=== PATIENT | female | born 1935 | race Caucasian/White ===

== ENCOUNTER → 2017-10-14 | Outpatient (CLI) | payer OTHER | LOC: FIMAGING 09:19 | PROVIDERS: ATTEND Internal Medicine | DX: I63.9 Cerebral infarction, unspecified (principal) ==

== ENCOUNTER 2017-10-27 15:10 | Inpatient (IN) | payer OTHER ==
[2017-10-27] MEDS ORDERED: traMADol 50 MG TAB PO PRN (16:06)
--- NOTE | 2017-10-27 16:33 | PDOREHIP ---
Admission [facility] - Admission - 3 Day Assessment Period Admission Date/Day 1: 10/27/17 Day 2: 10/28/17 Day 3: 10/29/17 - Active Diagnoses Comorbidities and Co-existing Conditions at Admission: 29583. None of the Above - Skin Conditions Unhealed Pressure Ulcer (1 or more/Stage 1 or >)-Admission: 0. No
--- NOTE | 2017-10-27 17:12 | GHP ---
[f rep st] HISTORY AND PHYSICAL POST ADMISSION PHYSICIAN EVALUATION AND REHABILITATION TREATMENT PLAN DATE OF ADMISSION: 10/27/2017 DATE OF EVALUATION: 10/27/2017 TIME OF EVALUATION: 1550 REFERRING FACILITY: [facility]. REFERRING PHYSICIAN: Dr. Del Valle IMPAIRMENT GROUP: 1.2. DATE OF ONSET: 10/14/2017 REHABILITATION DIAGNOSIS: Cerebrovascular accident with ataxia. ETIOLOGIC DIAGNOSIS: Right body involvement (left brain). HISTORY OF PRESENT ILLNESS: This patient is an 82-year-old woman who presented to her primary care provider with acute mental status changes on 10/13/2017. An MRI of the brain was ordered which showed an acute to subacute infarct in the left dentate nucleus, the anterior external capsule, and the albert ventricular region of the left frontal lobe with hemorrhage and no mass effect. Also seen were periventricular white matter changes and cerebral atrophy. She was seen on 10/16/2017 by Neurology who noted aphasia, gait ataxia, and decline in cognition and function. She returned to independent living at [facility] with home care services and family support. Home physical therapy noted that she was a fall risk and was not safe living independently and recommended admission to acute inpatient rehabilitation. Recent studies and labs: prior to onset of her symptoms she was seen in primary care and had a CBC on 10/09/2017 which was overall within normal limits. She had a relative increase in neutrophils at 78.8% and decrease in lymphocytes at 10.6%, but this was of no clinical significance. Serum chemistry on the same date showed a slightly elevated creatinine of 1.1 and an estimated GFR of 47. Blood sugar was elevated at 141, but this was likely not fasting. Her total protein was slightly low at 5.9 with a normal albumin. Otherwise, renal function, electrolytes, and liver functions were within normal limits. Vitamin B12 was normal at 643 and TSH was normal at 0.679. Urinalysis on 10/10/2017 showed positive nitrates and leukocyte esterase. She had 50-182 white blood cells and no epithelial cells. Urine was cultured and grew Escherichia coli which was pansensitive. MRI of the brain was as discussed above. PRECAUTIONS: She is a fall risk. She has aspiration precautions. ACTIVE COMORBIDITIES: She has no active tier 1, tier 2 or tier 3 comorbidities. PAST MEDICAL HISTORY: 1. Hypothyroidism. 2. Sciatica. 3. Cataracts. 4. Depression. 5. Hypertension. 6. Dyslipidemia. 7. Cognitive impairment. PAST SURGICAL HISTORY: She has had an appendectomy and a hysterectomy. She had recent cataract surgery. MEDICATIONS PRIOR TO ADMISSION: 1. Ibuprofen 200 mg q.6 hours p.r.n. 2. Aspirin 81 mg p.o. daily. 3. Cephalexin treatment for urinary tract infection has been completed. 4. Duloxetine 60 mg p.o. daily at bedtime. 5. Duloxetine 40 mg daily. 6. Levothyroxine 50 mcg p.o. daily. 7. Lisinopril 2.5 mg p.o. daily. 8. Stool softener twice a week. 9. Tramadol 1-2 mg p.o. q.6 hours p.r.n. 10. Solifenacin 5 mg p.o. daily. ADMISSION MEDICATIONS: 1. Aspirin 81 mg p.o. daily. 2. Atorvastatin 10 mg p.o. at bedtime. 3. Duloxetine 40 mg p.o. daily. 4. Levothyroxine 50 mcg p.o. daily. 5. Lisinopril 2.5 mg p.o. daily. 6. Solifenacin 5 mg p.o. daily. 7. Tramadol 50-100 mg p.o. q.6 hours p.r.n. ALLERGIES: There are no known drug allergies. FAMILY HISTORY: She has a daughter with vascular dementia and there is a family history of hypertension. PSYCHOSOCIAL HISTORY: She is a . She has had a career as a surgical nurse. She has 2 daughters. She had been living with 1 daughter in [place], [place], but approximately a year ago the 2 of them moved as the [place] daughter was developing dementia, so they moved to [place] to be cared for by the other daughter. She is a nonsmoker and does not use alcohol. She lives at [facility]. There are no stairs to climb. REVIEW OF SYSTEMS: She reports that she has had some recent weight loss, but her daughter reports that a year ago she weighed 84 pounds and currently weighs 93 pounds. She reports a reduced appetite. She denies pain at present. Daughter reports that since the stroke her sciatic pain has remitted. She denies vision changes, difficulty swallowing, weakness, numbness or tingling of the extremities. She denies headache. She denies chest pain or palpitations. She denies fevers or chills. She denies nausea, vomiting, constipation, diarrhea. She denies dysuria or urinary frequency. Otherwise, a 10-point review of systems is negative. PHYSICAL EXAM: VITAL SIGNS: Blood pressure is 128/76, heart rate is 81, respiratory rate is 14, oxygen saturation is 93% on room air. Temperature is 36.4 degrees centigrade. Her weight is 42.5 kg for a body mass index of 16.6. GENERAL: This is a thin elderly woman, appears her chronologic age, cooperative , and in no acute distress. HEENT: Extraocular movements are intact. Pupils are small, but reactive to light. Mucous membranes are moist. Dentition is in good condition with dentures. She has a crowded airway, Mallampati class 3. There are no oropharyngeal mucosal lesions noted. NECK: Supple. There are no carotid bruits. There is no thyromegaly. HEART: There is a regular rate and rhythm with no murmurs, rubs, or gallops. LUNGS: Clear to auscultation bilaterally. ABDOMEN: Soft, nontender, nondistended with normoactive bowel sounds and no hepatosplenomegaly. EXTREMITIES: There is no clubbing or edema. Feet are cyanotic and cool, but capillary refill is brisk. Radial pulses are 2+ bilaterally and dorsalis pedis pulses are 2+ bilaterally. NEUROLOGIC: She is alert and oriented to the month and year and general situation. She is not oriented to name of her current location or the date of the month. Cranial nerves 2-12 are grossly intact. She has 4/5 strength in the right biceps and triceps and the right quadriceps and hip flexors. Otherwise, strength is 5/5 overall. Sensation is intact to light touch. Deep tendon reflexes are globally hypoactive. Current level of function per the pre-admission screen: regarding diet, feeding , and swallowing, she was on a regular diet but required assistance for setup. Regarding grooming, she required minimal assistance with voice cues. Regarding bathing, she required moderate assistance with voice cues. Dressing was accomplished with apraxia noted and requiring maximal assistance with voice cues. Toileting was done with minimal assistance. Regarding bladder she was noted to have urinary incontinence requiring pads and maximal assistance to place pads. Regarding bowels she was continent. Bed mobility required maximal assistance and transfers minimal assistance, but she appears to have improved mobility at present. She was using a front-wheeled walker. Regarding balance, she had loss of balance to the right side and required maximal assistance to prevent a fall. Endurance was fair. Regarding gait she was noted to have decreased step length on the right with shuffling and at times dragging the right lower extremity. She had decreased guillermo, requiring moderate assistance with a front-wheeled walker and constant voice cues to negotiate the environment. Regarding communication, she was noted to have expressive aphasia. Regarding cognition, she was noted to have moderate impairment involving executive function skills and initiation. She was considered to be a high fall risk. IMPRESSION: This is an 82-year-old woman who came to the attention of primary care and subsequently Neurology with an acute to subacute hemorrhagic stroke of the left-sided deep white matter and frontal lobe. She was initially sent home with orders for home therapies. However, home therapy found her to be unsafe to be living in an independent situation and so arrangements were made for her to transfer to inpatient rehabilitation to continue rehabilitation in a safer setting. She had been prescribed atorvastatin by Neurology, but apparently this has not been initiated. She has associated medical conditions of hypertension, dyslipidemia, urinary incontinence, possible overactive bladder, depression, hypothyroidism, and sciatic pain. Her goal is to return to independent living with home health services as needed. For a safe discharge it is expected that she will achieve modified independence for bed mobility, grooming, dressing, transfers, and ambulation with the least restrictive device. It is likely she will continue to need assistance for bathing, household management, and meal preparation. She will have therapies with physical therapy, occupational therapy, and speech and language pathology for 60 minutes per day for each discipline on 5-7 days of the week. Her expected duration of stay is 14-21 days. It is anticipated that upon discharge she will continue to benefit from home health services including nursing, speech language pathology, a home health aide , social work, OT and PT. Additionally, she will benefit from a stroke support group. PLAN: 1. 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 PT and OT to optimize mobility and ADLs towards discharge to independent living with support services as needed. 2. Cognitive and communication deficits possibly pre-existing and exacerbated by stroke. Assessment and treatment per Speech and Language Pathology. 3. Secondary stroke prophylaxis. Continue aspirin, atorvastatin, and blood pressure control with lisinopril. Monitor blood pressure and adjust lisinopril as needed. 4. Urinary incontinence. Continue solifenacin. We will check bladder scan to rule out overflow incontinence and will initiate timed voiding and the rehabilitation bladder program. 5. Chronic renal insuficiency, stage 3. Monitor renal function with adjustment of blood pressure medications. 6. Recent urinary tract infection status post treatment with cefuroxime. She will be observed for any continued symptoms or recurrent symptoms. 7. Chronic pain with history of sciatica, which appears to have remitted subsequent to her stroke. Continue tramadol on a p.r.n. basis. I have also scheduled acetaminophen on a p.r.n. basis. 8. History of depression. Continue duloxetine. 9. Code status was discussed with the patient and her daughter and she prefers do not resuscitate. 10. Prophylaxis. She is not hemiparetic or bed bound. Pharmacologic DVT prophylaxis will not be initiated at present. Observe for adequate mobility. /[id number]/MODL MTDD
[2017-10-27] MEDS: DULoxetine 20 MG CAP PO SCH (20:05)
[2017-10-27] MEDS: SOLIFENACIN SUCCINATE 5 MG TAB PO SCH (20:05)
[2017-10-27] MEDS: ATORVASTATIN CALCIUM 10 MG TAB PO SCH (20:05)
[2017-10-28] MEDS: LEVOTHYROXINE 50 MCG TAB PO SCH (06:18)
[2017-10-28] MEDS: ASPIRIN EC 81 MG TAB PO SCH (08:23)
[2017-10-28] MEDS: POLYETHYLENE GLYCOL 3350 17 GM PKT PO PRN (08:23)
[2017-10-28] MEDS ORDERED: DULoxetine 20 MG CAP PO SCH (09:00)
[2017-10-28] MEDS ORDERED: LISINOPRIL 2.5 MG TAB PO SCH (09:00)
[2017-10-28] MEDS ORDERED: SOLIFENACIN SUCCINATE 5 MG TAB PO SCH (09:00)
[2017-10-28] MEDS ORDERED: LISINOPRIL 2.5 MG TAB PO ONE (09:00)
--- NOTE | 2017-10-28 09:37 | SOAPPROG ---
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 Hemorrhagic stroke to the left dentate nucleus, anterior external capsule, and periventricular left frontal lobe. subvacute on imaging 10/14/2017. * Ambulated 50' 4ww CGA. * Continue PT and OT to optimize mobility and ADLs towards discharge to independent living with support services as needed. * Cognitive and communication deficits possibly pre-existing and exacerbated by stroke. * Assessment and treatment per Speech and Language Pathology. * Chair and bed alarms for safety. * Secondary stroke prophylaxis. Continue aspirin, atorvastatin, and blood pressure control. * Hypertension. * BP elevated this morning 11/07/2017. * Increase lisinopril from 2.5 mg QD to 5 mg QD. Continue to monitor and adjust as needed. * Urinary incontinence. Continue solifenacin. * We will check bladder scan to rule out overflow incontinence and will initiate timed voiding and the rehabilitation bladder program. * Chronic renal insufficiency, stage 3. Monitor renal function with adjustment of blood pressure medications. * Recent urinary tract infection status post treatment with cefuroxime. She will be observed for any continued symptoms or recurrent symptoms. Chronic pain with history of sciatica, which appears to have remitted subsequent to her stroke. * Continue tramadol and acetaminophen on a p.r.n. basis. * History of depression. Continue duloxetine. * Code status was discussed with the patient and her daughter and she prefers do not resuscitate. * Prophylaxis. She is not hemiparetic or bed bound. Pharmacologic DVT prophylaxis will not be initiated at present. Observe for adequate mobility. 10/28/17 12:11 Subjective: No complaints. Slept well. Not in pain. No fevers, chills, cough, dyspnea. Objective: Vital Signs Temp Pulse Resp BP Pulse Ox 36.7 C 76 16 177/99 H 97 10/28/17 06:37 10/28/17 06:37 10/28/17 06:37 10/28/17 08:58 10/28/17 06:37 10/27/17 10/28/17 10/29/17 05:59 05:59 05:59 Intake Total 640 360 Balance 640 360 Physical Exam - Physical Exam General Appearance: WD/WN, alert, no apparent distress, thin Respiratory: normal breath sounds, No crackles, No rhonchi, No wheezing Skin: normal color, warm/dry Neuro/Psych: alert, normal mood/affect ICD10 Worksheet Patient Problems: Problems Problem Status Onset HTN (hypertension) Acute Hemorrhagic stroke Acute - ICD10 Problem Qualifiers (1) Hemorrhagic stroke (2) HTN (hypertension)
[2017-10-28] MEDS: ATORVASTATIN CALCIUM 10 MG TAB PO SCH (19:48)
[2017-10-28] MEDS: SOLIFENACIN SUCCINATE 5 MG TAB PO SCH (19:48)
[2017-10-28] MEDS: DULoxetine 20 MG CAP PO SCH (19:48)
[2017-10-29] MEDS: LEVOTHYROXINE 50 MCG TAB PO SCH (07:16)
[2017-10-29] MEDS: ASPIRIN EC 81 MG TAB PO SCH (09:51)
[2017-10-29] MEDS: LISINOPRIL 5 MG TAB PO SCH (09:51)
--- NOTE | 2017-10-29 10:40 | SOAPPROG ---
SOAP Progress Note Assessment/Plan: 82-year-old woman status post left hemorrhagic subacute stroke Today's update: Still mildly hypertensive, implemented increase of lisinopril to 5 mg p.o. q.day with a 1 time dose of 2.5 mg today. Patient asymptomatic. Progressing well in therapies. 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 Hemorrhagic stroke to the left dentate nucleus, anterior external capsule, and periventricular left frontal lobe. subacute on imaging 10/14/2017. * Ambulated 50' 4ww CGA. * Continue PT and OT to optimize mobility and ADLs towards discharge to independent living with support services as needed. * Cognitive and communication deficits possibly pre-existing and exacerbated by stroke. * Assessment and treatment per Speech and Language Pathology. * Chair and bed alarms for safety. * Secondary stroke prophylaxis. Continue aspirin, atorvastatin, and blood pressure control. * Hypertension. Mildly elevated, asymptomatic * Increased lisinopril from 2.5 mg QD to 5 mg QD. Continue to monitor and adjust as needed. * Made order changed today 10/29/2017, gave 1 time dose of lisinopril 2.5 mg * Urinary incontinence. Continue solifenacin. * We will check bladder scan to rule out overflow incontinence and will initiate timed voiding and the rehabilitation bladder program. * Chronic renal insufficiency, stage 3. Monitor renal function with adjustment of blood pressure medications. * Recent urinary tract infection status post treatment with cefuroxime. She will be observed for any continued symptoms or recurrent symptoms. Chronic pain with history of sciatica, which appears to have remitted subsequent to her stroke. * Continue tramadol and acetaminophen on a p.r.n. basis. * History of depression. Continue duloxetine. * Code status was discussed with the patient and her daughter and she prefers do not resuscitate. * Prophylaxis. She is not hemiparetic or bed bound. Pharmacologic DVT prophylaxis will not be initiated at present. Observe for adequate mobility. 10/29/17 10:37 Subjective: Chief complaint: Hypertension No acute events overnight. Patient denies any shortness of breath or chest pain , no new numbness, tingling, or weakness. She denies any lightheadedness, no headache. She feels that therapy is going well, no additional concerns today. She did not receive 5 mg of lisinopril this morning, rather 2.5 mg. Order was changed according to documentation and discussion with Dr. Jolley. Objective: Vital Signs Temp Pulse Resp BP Pulse Ox 36.7 C 75 16 159/85 H 97 10/29/17 07:29 10/29/17 07:29 10/29/17 07:29 10/29/17 09:51 10/29/17 07:29 10/28/17 10/29/17 10/30/17 05:59 05:59 05:59 Intake Total 640 660 236 Balance 640 660 236 Physical Exam - Physical Exam General Appearance: alert, no apparent distress, thin EENT: No scleral icterus (R), No scleral icterus (L) Respiratory: No respiratory distress, No accessory muscle use Cardiac/Chest: normal peripheral pulses, regular rate, rhythm Skin: normal color, warm/dry, No cyanosis, No diaphoresis Extremities: No pedal edema, No swelling Neuro/Psych: alert, normal mood/affect ICD10 Worksheet Patient Problems: Problems Problem Status Onset HTN (hypertension) Acute Hemorrhagic stroke Acute
[2017-10-29] MEDS: DULoxetine 20 MG CAP PO SCH (20:21)
[2017-10-29] MEDS: ATORVASTATIN CALCIUM 10 MG TAB PO SCH (20:22)
[2017-10-29] MEDS: SOLIFENACIN SUCCINATE 5 MG TAB PO SCH (20:22)
[2017-10-30] MEDS: LEVOTHYROXINE 50 MCG TAB PO SCH (06:15)
[2017-10-30] MEDS: hydrALAZINE 10 MG TAB PO PRN (07:50)
[2017-10-30] MEDS: ACETAMINOPHEN 325 MG TAB PO PRN (07:52)
[2017-10-30] MEDS: LISINOPRIL 5 MG TAB PO SCH (07:52)
[2017-10-30] MEDS: ASPIRIN EC 81 MG TAB PO SCH (07:53)
[2017-10-30] MEDS ORDERED: LISINOPRIL 2.5 MG TAB PO ONE (10:29)
--- NOTE | 2017-10-30 13:29 | SOAPPROG ---
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 Hemorrhagic stroke to the left dentate nucleus, anterior external capsule, and periventricular left frontal lobe. subacute on imaging 10/14/2017. * Initial FIM 50. Ambulated 50' 4ww SBA with occasional CGA. Unsafe with 4 wheeled walker as she does not understand use of the brakes. Upper body dressing with setup, lower body dressing with moderate assist. * Continue PT and OT to optimize mobility and ADLs. * Cognitive and communication deficits possibly pre-existing and exacerbated by stroke. * Disoriented with 0 L of G score 14/30. Moderate to severe expressive aphasia and moderate receptive aphasia. Word-finding and naming deficits and loses track of conversation. DIS executive with decreased safety awareness and insight. * Continue Speech and Language Pathology. * Chair and bed alarms for safety. * Secondary stroke prophylaxis. Continue aspirin, atorvastatin, and blood pressure control. * Hypertension. * BP elevated this morning 10/30/2017, with systolic to 207. Received a dose of hydralazine with improvement. * Increased lisinopril from 2.5 mg QD to 5 mg QD starting 10/29/2017. Add amlodipine 5 mg at HS. Continue to monitor and adjust as needed. * Urinary incontinence. Continue solifenacin. * B;adder scan 188 cc; unclear if pre- or post-void. * Continue timed voiding and the rehabilitation bladder program. * Chronic renal insufficiency, stage 3. Monitor renal function with adjustment of blood pressure medications. * Recent urinary tract infection status post treatment with cefuroxime. She will be observed for any continued symptoms or recurrent symptoms. Chronic pain with history of sciatica, which appears to have remitted subsequent to her stroke. * Continue tramadol and acetaminophen on a p.r.n. basis. * History of depression. Continue duloxetine. * Code status was discussed with the patient and her daughter and she prefers do not resuscitate. * Prophylaxis. She is not hemiparetic or bed bound. Pharmacologic DVT prophylaxis will not be initiated at present. Observe for adequate mobility. Attended staffing, 15 min. Discussed with case management, dietitian, nursing, PT, OT, [employer]. 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 Observe for continued improvement. Unclear whether discharge will be back to independent living verses assisted living level. Tentative discharge date of 11/06/2017. 10/30/17 13:21 Subjective: Reports some pain, not severe, left proximal hamstring area. Slept well. No cough or dyspnea. No fevers or chills. Objective: Vital Signs Temp Pulse Resp BP Pulse Ox 36.6 C 71 15 170/91 H 93 10/30/17 07:51 10/30/17 07:51 10/30/17 07:51 10/30/17 08:28 10/30/17 07:51 10/29/17 10/30/17 10/31/17 05:59 05:59 05:59 Intake Total 660 386 118 Balance 660 386 118 - Time Spent With Patient Time Spent With Patient: Greater than 35 min floor time today including more than 50% of time in coordination of care during staffing meeting, and counseling patient. Physical Exam - Physical Exam General Appearance: WD/WN, alert, no apparent distress, thin Respiratory: normal breath sounds, No crackles, No rhonchi, No wheezing Cardiac/Chest: regular rate, rhythm, No edema, No diastolic murmur, No systolic murmur Skin: normal color, warm/dry Neuro/Psych: alert, normal mood/affect, abnormal gait (Short steps, shuffling, brief periods of freezing, with front wheeled walker, standby assist per PT.) ICD10 Worksheet Patient Problems: Problems Problem Status Onset HTN (hypertension) Acute Hemorrhagic stroke Acute - ICD10 Problem Qualifiers (1) Hemorrhagic stroke (2) HTN (hypertension)
[2017-10-30] MEDS ORDERED: amLODIPine BESYLATE 5 MG TAB PO SCH (21:00)
[2017-10-30] MEDS: SOLIFENACIN SUCCINATE 5 MG TAB PO SCH (21:56)
[2017-10-30] MEDS: DULoxetine 20 MG CAP PO SCH (21:56)
[2017-10-30] MEDS: ATORVASTATIN CALCIUM 10 MG TAB PO SCH (21:56)
[2017-10-31] MEDS: LEVOTHYROXINE 50 MCG TAB PO SCH (06:16)
[2017-10-31] MEDS: ACETAMINOPHEN 325 MG TAB PO PRN (07:00)
[2017-10-31] MEDS: LISINOPRIL 5 MG TAB PO SCH (08:31)
[2017-10-31] MEDS: ASPIRIN EC 81 MG TAB PO SCH (08:36)
[2017-10-31] MEDS: hydrALAZINE 10 MG TAB PO PRN (08:38)
[2017-10-31] MEDS ORDERED: oxyCODONE IR 5 MG TAB PO PRN (10:18)
[2017-10-31] MEDS ORDERED: amLODIPine BESYLATE 5 MG TAB PO SCH (12:40)
[2017-10-31] MEDS: LIDOCAINE 5% 1 EA PATCH TD SCH (14:51)
--- NOTE | 2017-10-31 17:00 | HOSPPROG ---
Hospitalist Progress Note Assessment/Plan: Assessment: 82 yo F p/w subacute multifocal CVA, small areas of hemorrhagic conversion # Acute on chronic encephalopathy. Evidenced by global brain dysfunction characterized as a sudden decline in mental status 10/30/17 AM. - Called by RN w/ unresponsive patient, SBP 200->110, visibly tachypneic, mental status at baseline prior to admin of BP+pain Rx - Reviewed chart (prior neuro consult by Dr. Ireland 10/16/17, prior MRI w/ small areas of hemorrhagic conversion), patient was at high risk of intracranial hemorrhage, decision made to get stat HCT at [facility] ED w/ labs for further evaluation - D/w Dr. Flaherty at , he reassessed patient after HCT/labs, determined her mental status to be improved (eyes open, following commands) with SBP 130s, other VSS - Patient acutely unresponsive this AM to sternal rub, suspect 2/2 transient cerebrovascular hypoperfusion in setting of rapid decline in SBP, unclear if UTI present and contributing - Will avoid rapid lowering of BP, ideal range 140-180 - 50 minutes of critical care time spent w/ this patient and family, addressing the situation above which was high risk of worsening morbidity/mortality given her significant co-morbid conditions, rapid mental status changes # Cerebrovascular accident with worsening cognition, ataxia and right hemiparesis. Microvascular ischemia, Hemorrhagic stroke to the left dentate nucleus, anterior external capsule, and periventricular left frontal lobe. Subacute on MRI 10/14/2017. - Initial FIM 50. Ambulated 50' 4ww SBA with occasional CGA. Unsafe with 4 wheeled walker as she does not understand use of the brakes. Upper body dressing with setup, lower body dressing with moderate assist. - Continue PT and OT to optimize mobility and ADLs. - Continue aspirin, atorvastatin, and blood pressure control # Cognitive and communication deficits possibly pre-existing and exacerbated by stroke. New baseline is AAOx1, follows commands - Disoriented with 0 L of G score 14/30. Moderate to severe expressive aphasia and moderate receptive aphasia. Word-finding and naming deficits and loses track of conversation. DIS executive with decreased safety awareness and insight. - Continue Speech and Language Pathology. - Chair and bed alarms for safety. # Hypertension. Chronic, microvascular changes on head imaging likely secondary to uncontrolled BP as outpt - Combination of amlodipine + increased lisinopril + PRN hydralazine caused drop to 110s - D/w daughter (Whit), her impression is that patient has felt less well since starting lisinopril - Given CKD, will avoid further increased to ACEi and will lower back to 2.5 - Increase amlodipine to 10mg HS - Stop PRN hydralazine - Gauge effect # Acute Urinary retention. Urinary incontinence likely flow incontinence, 800cc in bladder scan in ED, but had lower volume (200cc) on prior days - Unclear if solifenacin contributing - Lester placed in ED 10/31, continue for several days then trial void # Chronic renal insufficiency, stage 3. Avoid further increases to ACEi, recommend she f/u w/ [facility] as outpatient # Possible UTI. Recently treated w/ cefuroxime, patient unable to articulate whether she is having any symptoms - Given this AM's acute mental status change, 4+ bacteria/nitrates in UA, and leukocytosis, will give one dose CTX now and gauge effect - Repeat CBC in AM # Chronic pain with history of sciatica, which appears to have remitted subsequent to her stroke. - D/w daughters, I recommended discontinuing tramadol given lowered seizure threshold with CVA - PRN tylenol, oxy IR, lidoderm patch # History of depression. Continue duloxetine. Diet. Regular as ashley PPx. High risk is not getting out of bed, SCDs, monitor Code. DNR Dispo. Acute events today, unclear how these will effect overall functional status Subjective: patient completely unresponsive this AM s/p lisinopril + hydralazine + tramadol + tylenol Objective: Vital Signs Temp Pulse Resp BP Pulse Ox 36.8 C 78 17 200/90 H 93 10/31/17 07:41 10/31/17 08:00 10/31/17 08:00 10/31/17 08:38 10/31/17 08:00 10/30/17 10/31/17 11/01/17 05:59 05:59 05:59 Intake Total 386 218 Output Total 100 75 Balance 386 118 -75 - Physical Exam Constitutional: not in pain, chronically ill appearing, No uncomfortable Eyes: anicteric sclera, EOMI Cardiovascular: regular rate and rhythym, no murmur, rub, or gallop, No edema Respiratory: no respiratory distress, no rales or rhonchi, clear to auscultation Gastrointestinal: normoactive bowel sounds, soft, non-tender abdomen, no palpable masses Neurologic: other (expressive aphasia, naming 0/3, concentration 0/7, motor bilat UE/LE 5/5) Psychiatric: not anxious, encephalopathic, flat affect, other (cooperates w/ some commands), No agitated ICD10 Worksheet Patient Problems: Problems Problem Status Onset HTN (hypertension) Acute Hemorrhagic stroke Acute UTI (urinary tract infection) Acute Urinary retention Acute
[2017-10-31] MEDS: DULoxetine 20 MG CAP PO SCH (20:02)
[2017-10-31] MEDS: ATORVASTATIN CALCIUM 10 MG TAB PO SCH (20:02)
[2017-11-01] MEDS: PATCH REMOVAL 1 EA PATCH TD SCH (02:16)
[2017-11-01] MEDS: LEVOTHYROXINE 50 MCG TAB PO SCH (06:38)
[2017-11-01 07:44] LABS: PLATELET COUNT 233 10^3/uL (150-400)
[2017-11-01] MEDS ORDERED: LISINOPRIL 2.5 MG TAB PO SCH (09:00)
[2017-11-01] MEDS ORDERED: LISINOPRIL 5 MG TAB PO SCH (09:00)
[2017-11-01] MEDS: ASPIRIN EC 81 MG TAB PO SCH (09:36)
[2017-11-01] MEDS: LIDOCAINE 5% 1 EA PATCH TD SCH (09:36)
[2017-11-01] MEDS ORDERED: POTASSIUM CL 20 MEQ TAB PO ONE (12:18)
--- NOTE | 2017-11-01 12:26 | HOSPPROG ---
Hospitalist Progress Note Assessment/Plan: Assessment: 82 yo F p/w subacute multifocal CVA, small areas of hemorrhagic conversion, c/b acute encephalopathy and possible UTI 10/31 # Acute on chronic encephalopathy. Evidenced by global brain dysfunction characterized as a sudden decline in mental status 10/31/17 AM, likely 2/2 rapid drop in SBP (200->110), as well as possible UTI - HCT w/o further ICH - completely resolved today, mental status is best it has been during her LOS # Cerebrovascular accident with ataxia and right hemiparesis. Microvascular ischemia, Hemorrhagic stroke to the left dentate nucleus, anterior external capsule, and periventricular left frontal lobe. Subacute on MRI 10/14/2017. - Continue PT and OT to optimize mobility and ADLs. - Continue aspirin, atorvastatin, and blood pressure control (avoid hypotension) # Cognitive and communication deficits possibly pre-existing and exacerbated by stroke. New baseline is AAOx2, follows commands - Continue Speech and Language Pathology. - Chair and bed alarms for safety. # Hypertension. Chronic, microvascular changes on head imaging likely secondary to uncontrolled BP as outpt - BP at goal today 120-160 on lisinopril 2.5 and amlodipine 10, but she became orthostatic while working w/ therapy (SBP 98 w/ Sx) - since the amlodipine is likely to continue becoming active in her system during the next 24hrs and is more difficult to wean on/off than lisinopril, favor stopping lisinopril and monitoring BP on single agent amlodipine 10 - Gauge effect # Acute Urinary retention. Urinary incontinence likely flow incontinence, 800cc in bladder scan in ED - Unclear if solifenacin contributing, discontinued - Lester placed in ED 10/31, continue for several days then trial void (tomorrow?) # Chronic renal insufficiency, stage 3.Cr 1.3 yesterday, downtrended to < 1 this AM # Possible UTI. Recently treated w/ cefuroxime for rao-sensitive UTI 10/10/17, patient unable to articulate whether she is having any symptoms - Given mental status change, 4+ bacteria/nitrates in UA, and leukocytosis, gave CTX 10/31 - Leukocytosis resolved, mental status at its best, UCx w/ 100,000 GNRs - will start levoflox 750 daily empirically, but recommend short course (3-5 days), currently D#2/3 # Chronic pain with history of sciatica, which appears to have remitted subsequent to her stroke. - D/w daughters, I recommended discontinuing tramadol given lowered seizure threshold with CVA - PRN tylenol, oxy IR, lidoderm patch - nothing reproducible on today's exam, no pain exacerbated by flexion of hip # History of depression. Continue duloxetine. Diet. Regular as ashley PPx. High risk is not getting out of bed, SCDs, monitor Code. DNR Dispo. Ongoing therapy needs Subjective: patient reports intermittent R hip pain Objective: Vital Signs Temp Pulse Resp BP Pulse Ox 36.8 C 99 16 98/66 L 96 11/01/17 07:33 11/01/17 11:00 11/01/17 07:33 11/01/17 11:00 11/01/17 07:33 Laboratory Results 11/01/17 06:30 11/01/17 06:30 10/31/17 11/01/17 11/02/17 05:59 05:59 05:59 Intake Total 218 300 386 Output Total 100 525 Balance 118 -225 386 - Physical Exam Constitutional: no apparent distress, not in pain, chronically ill appearing, No uncomfortable Cardiovascular: regular rate and rhythym, no murmur, rub, or gallop, No edema Respiratory: no respiratory distress, no rales or rhonchi, clear to auscultation Gastrointestinal: normoactive bowel sounds, soft, non-tender abdomen, no palpable masses Musculoskeletal: other (mild tenderness posterior R gluteal, full flexion R hip w/o painful ROM, no tendernes R troch bursa or inguinal area) Neurologic: sensation intact bilaterally, other (AAOx2 (person and time)), No weakness (motor 5/5 bilat UE/LE), No facial droop Psychiatric: not anxious, encephalopathic (back to baseline, concentration 3/7, naming 3/3 ), poor insight, poor memory, No agitated ICD10 Worksheet Patient Problems: Problems Problem Status Onset Hemorrhagic stroke Acute HTN (hypertension) Acute
[2017-11-01] MEDS: DULoxetine 20 MG CAP PO SCH (21:11)
[2017-11-01] MEDS: amLODIPine BESYLATE 5 MG TAB PO SCH (21:12)
[2017-11-01] MEDS: ATORVASTATIN CALCIUM 10 MG TAB PO SCH (21:12)
[2017-11-02] MEDS: LEVOTHYROXINE 50 MCG TAB PO SCH (05:12)
[2017-11-02] MEDS: PATCH REMOVAL 1 EA PATCH TD SCH ×2 (05:17→22:03)
[2017-11-02] MEDS: ASPIRIN EC 81 MG TAB PO SCH (11:07)
[2017-11-02] MEDS: LIDOCAINE 5% 1 EA PATCH TD SCH (11:08)
[2017-11-02 11:25] VITALS: RESP 16
--- NOTE | 2017-11-02 13:26 | SOAPPROG ---
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 Hemorrhagic stroke to the left dentate nucleus, anterior external capsule, and periventricular left frontal lobe. subacute on imaging 10/14/2017. * Initial FIM 50. Ambulated 50' 4ww SBA with occasional CGA. Unsafe with 4 wheeled walker as she does not understand use of the brakes. Upper body dressing with setup, lower body dressing with moderate assist. * Continue PT and OT to optimize mobility and ADLs. * Cognitive and communication deficits possibly pre-existing and exacerbated by stroke. * Disoriented with 0LOG score 14/30. Moderate to severe expressive aphasia and moderate receptive aphasia. Word-finding and naming deficits and loses track of conversation. Dysexecutive with decreased safety awareness and insight. * Continue Speech and Language Pathology. * Chair and bed alarms for safety. * Secondary stroke prophylaxis. Continue aspirin, atorvastatin, and blood pressure control. * Episode of obtundation 2 days ago with no new hemorrhage on head CT. * Presumably due to pain medication with tramadol plus excessive blood pressure lowering. Tramadol has been discontinued and lisinopril has been discontinued. * Per daughter may have had a subsequent episode yesterday the with no loss of consciousness; may also have been precipitated by low blood pressure. * Differential diagnosis includes seizure post CVA but no associated abnormal movements or loss of bowel or bladder control noted. * Hypertension. * BP elevated this morning 10/30/2017, with systolic to 207. Received a dose of hydralazine with improvement. * Increased lisinopril from 2.5 mg QD to 5 mg QD starting 10/29/2017. Added amlodipine 5 mg at HS. Amlodipine has since been titrated and then reduced, and lisinopril D/C'd by weekend cross-cover, due to episodes of low BP. * Continue to monitor and adjust as needed. * Urinary incontinence. Continue solifenacin. * Bladder scan 188 cc; unclear if pre- or post-void. * Continue timed voiding and the rehabilitation bladder program. * Urinary retention. * Voiding trial tomorrow 11/03/17. * Asymptomatic bacteriuria * Has received 2 doses of high-dose levofloxacin begun in the emergency department 10/31/2017. * Never had UTI symptoms and urinalysis positive for nitrites but otherwise negative including no elevated white blood cells and no leukocyte esterase. * DC antibiotics. * Chronic renal insufficiency, stage 3. Monitor renal function with adjustment of blood pressure medications. * Improved after hydration in the emergency department 10/31/2017. Mild hypokalemia likely due to IV fluids without potassium. * Encourage increased oral fluid intake. Chronic pain with history of sciatica, which appears to have remitted subsequent to her stroke. * Continue lidocaine patch, and acetaminophen on a p.r.n. basis. * History of depression. Continue duloxetine. * Code status was discussed with the patient and her daughter and she prefers do not resuscitate. * Prophylaxis. She is not hemiparetic or bed bound. Pharmacologic DVT prophylaxis will not be initiated at present. Observe for adequate mobility. 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 Observe for continued improvement. Unclear whether discharge will be back to independent living verses assisted living level. Tentative discharge date of 11/06/2017. Informed by [place] . Family meeting before discharge. 11/02/17 16:42 Subjective: No complaints today. Daughter noticed episode of increased right facial droop yesterday and reports that she could not name two different common objects while in therapy. There was no alteration in level of consciousness. She improved after a nap. Objective: Vital Signs Temp Pulse Resp BP Pulse Ox 36.9 C 92 16 127/68 H 92 11/02/17 08:00 11/02/17 08:00 11/02/17 08:00 11/02/17 08:00 11/02/17 08:00 Laboratory Results 11/01/17 06:30 11/01/17 06:30 11/01/17 11/02/17 11/03/17 05:59 05:59 05:59 Intake Total 300 704 240 Output Total 525 950 Balance -225 -246 240 Physical Exam - Physical Exam General Appearance: WD/WN, alert, no apparent distress Respiratory: normal breath sounds, No crackles, No rhonchi, No wheezing Cardiac/Chest: regular rate, rhythm, No diastolic murmur, No systolic murmur Skin: normal color, warm/dry Neuro/Psych: alert, normal mood/affect ICD10 Worksheet Patient Problems: Problems Problem Status Onset HTN (hypertension) Acute Hemorrhagic stroke Acute - ICD10 Problem Qualifiers (1) Hemorrhagic stroke (2) HTN (hypertension)
[2017-11-02] MEDS: ATORVASTATIN CALCIUM 10 MG TAB PO SCH (21:57)
[2017-11-02] MEDS: amLODIPine BESYLATE 5 MG TAB PO SCH (21:57)
[2017-11-02] MEDS: DULoxetine 20 MG CAP PO SCH (21:57)
[2017-11-03] MEDS: LEVOTHYROXINE 50 MCG TAB PO SCH (05:44)
[2017-11-03] MEDS: LIDOCAINE 5% 1 EA PATCH TD SCH (07:43)
[2017-11-03] MEDS: ASPIRIN EC 81 MG TAB PO SCH (07:44)
--- NOTE | 2017-11-03 09:56 | SOAPPROG ---
SOAP Progress Note Assessment/Plan: 82-year-old woman status post left hemorrhagic subacute stroke Today's update: Trevon is out for a voiding trial today, no reported new episodes of confusion. Reportedly making slow progress in rehabilitation limited by cognition. Continue rehabilitation program, will need 24 hr assistance on discharge most likely. A total of 25 min was spent on the floor in the care of the patient, the majority of which was spent in the counseling and coordination of care regarding discharge planning. Of note, reviewed the glucose value from a few days ago that was over 350, but it appears that a recheck was 150. Rechecking Chem 7 tomorrow also for history of low potassium and elevated BUN to creatinine ratio. 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 Hemorrhagic stroke to the left dentate nucleus, anterior external capsule, and periventricular left frontal lobe. subacute on imaging 10/14/2017. * Initial FIM 50. Ambulated 50' 4ww SBA with occasional CGA. Unsafe with 4 wheeled walker as she does not understand use of the brakes. Upper body dressing with setup, lower body dressing with moderate assist. * Continue PT and OT to optimize mobility and ADLs. * Cognitive and communication deficits possibly pre-existing and exacerbated by stroke. * Moderate to severe expressive aphasia and moderate receptive aphasia. Word- finding and naming deficits and loses track of conversation. Dysexecutive with decreased safety awareness and insight. * Continue Speech and Language Pathology. * Chair and bed alarms for safety. * Secondary stroke prophylaxis. Continue aspirin, atorvastatin, and blood pressure control. * Episode of obtundation with no new hemorrhage on head CT. Has not repeated, monitoring * Presumably due to pain medication with tramadol plus excessive blood pressure lowering. Tramadol has been discontinued and lisinopril has been discontinued. * Per daughter may have had a subsequent episode yesterday the with no loss of consciousness; may also have been precipitated by low blood pressure. * Differential diagnosis includes seizure post CVA but no associated abnormal movements or loss of bowel or bladder control noted. * Hypertension. * Episodic hypertension improved with hydralazine * Increased lisinopril from 2.5 mg QD to 5 mg QD starting 10/29/2017. Added amlodipine 5 mg at HS. Amlodipine has since been titrated and then reduced, and lisinopril D/C'd by weekend cross-cover, due to episodes of low BP. * Continue to monitor and adjust as needed. * Urinary incontinence. Continue solifenacin. * Bladder scan 188 cc; unclear if pre- or post-void. * Continue timed voiding and the rehabilitation bladder program. * Urinary retention. * Voiding trial * Asymptomatic bacteriuria * Has received 2 doses of high-dose levofloxacin begun in the emergency department 10/31/2017. * Never had UTI symptoms and urinalysis positive for nitrites but otherwise negative including no elevated white blood cells and no leukocyte esterase. * DC antibiotics. * Chronic renal insufficiency, stage 3. Monitor renal function with adjustment of blood pressure medications. * Improved after hydration in the emergency department 10/31/2017. Mild hypokalemia likely due to IV fluids without potassium. * Encourage increased oral fluid intake. Chronic pain with history of sciatica, which appears to have remitted subsequent to her stroke. * Continue lidocaine patch, and acetaminophen on a p.r.n. basis. * History of depression. Continue duloxetine. * Code status was discussed with the patient and her daughter and she prefers do not resuscitate. * Prophylaxis. She is not hemiparetic or bed bound. Pharmacologic DVT prophylaxis will not be initiated at present. Observe for adequate mobility. 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 Observe for continued improvement. Unclear whether discharge will be back to independent living verses assisted living level. Tentative discharge date of 11/06/2017. Informed by daughter that [place] the [place] starting . Family meeting before discharge. 10/29/17 10:37 11/03/17 09:52 11/03/17 10:01 Subjective: Chief complaint: Rehab progress No acute events overnight. No new episodes of confusion reported. Patient is trying a voiding trial today, nurse reported that the Lester is currently out. Patient denies any new shortness of breath or chest pain, no new numbness, tingling, or weakness. She feels that therapy is going just fine, she has no acute concerns. Objective: Vital Signs Temp Pulse Resp BP Pulse Ox 36.7 C 76 16 147/74 H 93 11/03/17 05:44 11/03/17 05:44 11/03/17 05:44 11/03/17 05:44 11/03/17 05:44 Laboratory Results 11/01/17 06:30 11/01/17 06:30 11/02/17 11/03/17 11/04/17 05:59 05:59 05:59 Intake Total 705 831 124 Output Total 473 1050 Balance -246 -318 386 Physical Exam - Physical Exam General Appearance: alert, no apparent distress EENT: No scleral icterus (R), No scleral icterus (L) Respiratory: lungs clear, normal breath sounds, No respiratory distress, No accessory muscle use, No decreased breath sounds, No crackles Cardiac/Chest: regular rate, rhythm, No edema Skin: normal color, warm/dry, No cyanosis, No diaphoresis Extremities: No pedal edema, No swelling Neuro/Psych: alert, normal mood/affect ICD10 Worksheet Patient Problems: Problems Problem Status Onset HTN (hypertension) Acute Hemorrhagic stroke Acute
[2017-11-03] MEDS: BETHANECHOL 10 MG TAB PO SCH ×3 (16:50→20:19)
[2017-11-03] MEDS: ATORVASTATIN CALCIUM 10 MG TAB PO SCH (20:19)
[2017-11-03] MEDS: DULoxetine 20 MG CAP PO SCH (20:19)
[2017-11-03] MEDS: LISINOPRIL 5 MG TAB PO SCH (20:19)
[2017-11-03] MEDS: PATCH REMOVAL 1 EA PATCH TD SCH (20:21)
[2017-11-04] MEDS: LEVOTHYROXINE 50 MCG TAB PO SCH (05:41)
[2017-11-04] MEDS: BETHANECHOL 10 MG TAB PO SCH ×4 (05:42→20:19)
[2017-11-04] MEDS: LISINOPRIL 5 MG TAB PO SCH ×2 (08:53→20:20)
[2017-11-04] MEDS: POLYETHYLENE GLYCOL 3350 17 GM PKT PO PRN (08:53)
[2017-11-04] MEDS: ASPIRIN EC 81 MG TAB PO SCH (08:53)
[2017-11-04] MEDS: LIDOCAINE 5% 1 EA PATCH TD SCH (12:08)
--- NOTE | 2017-11-04 12:45 | SOAPPROG ---
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 Hemorrhagic stroke to the left dentate nucleus, anterior external capsule, and periventricular left frontal lobe. subacute on imaging 10/14/2017. * Initial FIM 51, increased to 64 as of 11/04/2017. Ambulated 150' FWW SBA with occasional CGA. Unsafe with 4 wheeled walker as she does not understand use of the brakes. Shuffling gait improves with cues but she does not sustain improvement. Distractible, stimulus bound. Upper body dressing with setup, lower body dressing with moderate assist for balance with retropulsion. Cues for each step.. * Continue PT and OT to optimize mobility and ADLs. * Cognitive and communication deficits possibly pre-existing and exacerbated by stroke. * Disoriented with 0LOG score 14/30. Moderate to severe expressive aphasia and moderate receptive aphasia. Word-finding and naming deficits and loses track of conversation. Dysexecutive with decreased safety awareness and insight. * Continue Speech and Language Pathology. * Chair and bed alarms for safety. * Secondary stroke prophylaxis. Continue aspirin, atorvastatin, and blood pressure control. * Episode of obtundation 2 days ago with no new hemorrhage on head CT. * Presumably due to pain medication with tramadol plus excessive blood pressure lowering. Tramadol has been discontinued and lisinopril has been discontinued. * Per daughter may have had a subsequent episode yesterday the with no loss of consciousness; may also have been precipitated by low blood pressure. * Differential diagnosis includes seizure post CVA but no associated abnormal movements or loss of bowel or bladder control noted. * Hypertension. * Amlodipine may have contributed to urinary retention. * On lisinopril 5 mg p.o. twice daily. * Monitor for adequate control. * Urinary retention. * Lester placed over the weekend 10/31/2017. * PVR 300s - 400s; head straight catheterization x1 yesterday, 11/03/2017.. * Amlodipine may have contributed to retention. D/C'd yesterday and now on lisinopril 5 mg BIS * Bethanechol initiated 11/03/2017. * Asymptomatic bacteriuria * Has received 2 doses of high-dose levofloxacin begun in the emergency department 10/31/2017. * Never had UTI symptoms and urinalysis positive for nitrites but otherwise negative including no elevated white blood cells and no leukocyte esterase. * DC antibiotics. * Chronic renal insufficiency, stage 3. Monitor renal function with adjustment of blood pressure medications. * Improved after hydration in the emergency department 10/31/2017. Mild hypokalemia likely due to IV fluids without potassium, resolved 11/04/2017. * Encourage increased oral fluid intake. Chronic pain with history of sciatica, which appears to have remitted subsequent to her stroke. * Continue lidocaine patch, and acetaminophen on a p.r.n. basis. * History of depression. Continue duloxetine. * Code status was discussed with the patient and her daughter and she prefers do not resuscitate. * Prophylaxis. She is not hemiparetic or bed bound. Pharmacologic DVT prophylaxis will not be initiated at present. Observe for adequate mobility. Attended staffing, 15 min. Discussed with case management, pharmacy, dietitian , nursing, PT, OT, [employer] TECHNICIAN. Continues to be very cognitively impaired with parkinsonian features affecting gait and balance. Needs 24 hr supervision. Attended family conference, 30 min, daughter and son in attendance, MDPOA on the phone. Daughter plans to have patient return to assisted living with assistance and supervision arranged. Daughter feels strongly that this in the best interest of the patient and her other daughter who lives at the same assisted living. Therapy staff recommends 24 hr supervision and she would be appropriate with halfway level supervision. Case Management to continue to work with daughter to arrange discharges safe as possible to assisted living. Continue discharge date of 11/06/2017. Daughter that she will be out of the country for 6 weeks starting 11/07/2017. 11/04/17 12:32 Subjective: No complaints. Slept well. Objective: Vital Signs Temp Pulse Resp BP Pulse Ox 36.9 C 75 16 133/76 H 96 11/04/17 06:43 11/04/17 06:43 11/04/17 06:43 11/04/17 08:53 11/04/17 06:43 Laboratory Results 11/01/17 06:30 11/04/17 06:00 11/03/17 11/04/17 11/05/17 05:59 05:59 05:59 Intake Total 630 1250 150 Output Total 1050 1575 50 Balance -420 -325 100 - Time Spent With Patient Time Spent With Patient: Greater than 35 min floor time today, including more than 50% of time in coordination of care during staffing meeting and counseling patient's family during family conference. Physical Exam - Physical Exam General Appearance: WD/WN, alert, no apparent distress, thin Respiratory: No respiratory distress, No accessory muscle use Skin: normal color, warm/dry Neuro/Psych: alert, normal mood/affect, abnormal gait (Very short steps, narrow base, short steps with right leg.) ICD10 Worksheet Patient Problems: Problems Problem Status Onset HTN (hypertension) Acute Hemorrhagic stroke Acute - ICD10 Problem Qualifiers (1) Hemorrhagic stroke (2) HTN (hypertension)
[2017-11-04] MEDS: DULoxetine 20 MG CAP PO SCH (20:18)
[2017-11-04] MEDS: ATORVASTATIN CALCIUM 10 MG TAB PO SCH (20:19)
[2017-11-04] MEDS: PATCH REMOVAL 1 EA PATCH TD SCH (20:28)
[2017-11-05] MEDS: LEVOTHYROXINE 50 MCG TAB PO SCH (05:34)
[2017-11-05] MEDS: BETHANECHOL 10 MG TAB PO SCH ×4 (05:34→20:02)
[2017-11-05] MEDS: LISINOPRIL 5 MG TAB PO SCH ×2 (09:01→20:02)
[2017-11-05] MEDS: ASPIRIN EC 81 MG TAB PO SCH (09:01)
[2017-11-05] MEDS: LIDOCAINE 5% 1 EA PATCH TD SCH (09:01)
--- NOTE | 2017-11-05 13:46 | SOAPPROG ---
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 Hemorrhagic stroke to the left dentate nucleus, anterior external capsule, and periventricular left frontal lobe. subacute on imaging 10/14/2017. * Initial FIM 51, increased to 64 as of 11/04/2017. Ambulated 150' FWW SBA with occasional CGA. Unsafe with 4 wheeled walker as she does not understand use of the brakes. Shuffling gait improves with cues but she does not sustain improvement. Distractible, stimulus bound. Upper body dressing with setup, lower body dressing with moderate assist for balance with retropulsion. Cues for each step.. * Continue PT and OT to optimize mobility and ADLs. * Cognitive and communication deficits possibly pre-existing and exacerbated by stroke. * Disoriented with 0LOG score 14/30. Moderate to severe expressive aphasia and moderate receptive aphasia. Word-finding and naming deficits and loses track of conversation. Dysexecutive with decreased safety awareness and insight. * Continue Speech and Language Pathology. * Chair and bed alarms for safety. * Secondary stroke prophylaxis. Continue aspirin, atorvastatin, and blood pressure control. * Episode of obtundation 10/31/2017 with no new hemorrhage on head CT. * Presumably due to pain medication with tramadol plus excessive blood pressure lowering. Tramadol has been discontinued and lisinopril was discontinued ( subsequently restarted). * Per daughter may have had another episode with no loss of consciousness; may also have been precipitated by low blood pressure. * Differential diagnosis includes seizure post CVA but no associated abnormal movements or loss of bowel or bladder control noted. * Hypertension. * Amlodipine may have contributed to urinary retention. * On lisinopril 5 mg p.o. twice daily. * Monitor for adequate control. * Urinary retention. * Lester placed over the weekend 10/31/2017. * PVR 300s - 400s; head straight catheterization x1, 11/03/2017.. * Amlodipine may have contributed to retention. D/C'd 11/03/2017 and now on lisinopril 5 mg BID * Bethanechol initiated 11/03/2017 at 10 mg four times daily; titrated to 20 mg on 11/04/2017. * Asymptomatic bacteriuria * Has received 2 doses of high-dose levofloxacin begun in the emergency department 10/31/2017. * Never had UTI symptoms and urinalysis positive for nitrites but otherwise negative including no elevated white blood cells and no leukocyte esterase. * DC antibiotics. * Chronic renal insufficiency, stage 3. Monitor renal function with adjustment of blood pressure medications. * Improved after hydration in the emergency department 10/31/2017. Mild hypokalemia likely due to IV fluids without potassium, resolved 11/04/2017. * Encourage increased oral fluid intake. Chronic pain with history of sciatica, which appears to have remitted subsequent to her stroke. * Continue lidocaine patch, and acetaminophen on a p.r.n. basis. * History of depression. Continue duloxetine. * Code status was discussed with the patient and her daughter and she prefers do not resuscitate. * Prophylaxis. She is not hemiparetic or bed bound. Pharmacologic DVT prophylaxis will not be initiated at present. Observe for adequate mobility. Continues to be very cognitively impaired with parkinsonian features affecting gait and balance. Needs 24 hr supervision. Daughter plans to have patient return to assisted living with assistance and supervision arranged. Daughter feels strongly that this in the best interest of the patient and her other daughter who lives at the same assisted living. Therapy staff recommends 24 hr supervision and she would be appropriate with senior living level supervision. Continue discharge date of 11/06/2017to [facility] for eventual return to assisted living facility. Daughter will be out of the country for 6 weeks starting 11/07/2017. 11/05/17 13:47 Subjective: No complaints this afternoon. Denies pain. No cough or dyspnea. Objective: Vital Signs Temp Pulse Resp BP Pulse Ox 36.8 C 83 16 149/75 H 93 11/04/17 20:00 11/05/17 08:00 11/05/17 08:00 11/05/17 09:01 11/05/17 08:00 Laboratory Results 11/01/17 06:30 11/04/17 06:00 11/04/17 11/05/17 11/06/17 05:59 05:59 05:59 Intake Total 1250 300 430 Output Total 1575 1225 325 Balance -325 -925 105 Physical Exam - Physical Exam General Appearance: WD/WN, alert, no apparent distress, thin Respiratory: normal breath sounds, No crackles, No rhonchi, No wheezing Cardiac/Chest: regular rate, rhythm, No edema, No diastolic murmur, No systolic murmur Skin: normal color, warm/dry Neuro/Psych: no motor/sensory deficits, alert, normal mood/affect, cognition abnormalities (Automatic response to questions with no elaboration.) ICD10 Worksheet Patient Problems: Problems Problem Status Onset HTN (hypertension) Acute Hemorrhagic stroke Acute - ICD10 Problem Qualifiers (1) Hemorrhagic stroke (2) HTN (hypertension)
--- NOTE | 2017-11-05 13:52 | PDOREHIP ---
Admission [facility] - Admission - 3 Day Assessment Period Admission Date/Day 1: 10/27/17 Day 2: 10/28/17 Day 3: 10/29/17 Discharge [facility] - Discharge - 3 Day Assessment Period 2 Days Prior to Anticipated Discharge Date: 11/08/17 1 Day Prior to Anticipated Discharge Date: 11/09/17 Anticipated Discharge Date: 11/10/17 - Discharge Skin Conditions Unhealed Pressure Ulcer (1 or more/Stage 1 or >)-Discharge: 0. No
--- NOTE | 2017-11-05 18:48 | GDS ---
[f rep st] DISCHARGE SUMMARY ADMISSION DIAGNOSIS: Cerebrovascular accident. DISCHARGE DIAGNOSIS: Cerebrovascular accident. OTHER DISCHARGE DIAGNOSES: 1. Cognitive impairment. 2. Gait abnormality. 3. Hypertension. 4. Urinary retention. 5. Asymptomatic bacteriuria. 6. Chronic renal insufficiency. 7. Chronic pain. CONSULTATIONS: There were none. PROCEDURES: She had bladder catheterization. COMPLICATIONS: There were none. HISTORY/HOSPITAL COURSE: This patient was admitted from home. She had had acute mental status changes, been seen by her primary care provider, and had an MRI of the brain ordered. The MRI showed an [id number] infarct in the left dentate nucleus, the anterior external capsule, and the periventricular region of the left frontal lobe with hemorrhage, but no mass effects. She also had chronic periventricular white matter changes and cerebral atrophy. She had followup on 10/16, in the Neurology Clinic, with Dr. Ireland, who noted aphasia, gait ataxia, and decline in cognition and function. She had been living in independent living at [facility] and had home care services and family support. She had PT and OT ordered, and PT noted that she was a fall risk and not safe living independently. Subsequently, she was admitted to inpatient rehabilitation. She had some progress in inpatient rehabilitation. Her functional independence measure initially was 51, consistent with needing assistance in all aspects of activities of daily living, mobility, and cognition. Her functional independence measure increased to 64, as of 2017, and while this is a significant increase, she was still functioning at the [facility] level. She was able to ambulate 150 feet with a front-wheeled walker and standby assist with occasional contact guard assist for loss of balance. She had a trial of a 4-wheeled walker, but was not safe, as she could not understand the use of the brakes. She had a shuffling gait, which improved with cuing, but she did not sustain any improvement. She was noted to be quite distractible and stimulus bound. Regarding activities of daily living, she needed setup for upper body dressing and moderate assist for balance with lower body dressing. She was retropulsive. She needed cuing for each step of dressing. Regarding cognition and communication, she was unable to maintain orientation to date or her location. She had [id number] expressive aphasia and moderate receptive aphasia. She had word-finding and naming deficits and she would lose track of the conversation. She was dysexecutive and had decreased safety awareness and insight. She needed chair and bed alarms for safety. Regarding secondary stroke prophylaxis, she was maintained on aspirin and atorvastatin. She had fluctuations in her blood pressure as high as 200/90. She was placed on amlodipine, as well as lisinopril, and then she had some episodes of low blood pressure, as low as 98/66. She was noted to have obtundation when her blood pressure was very low. The blood pressure medications were reduced. She was noted to have urinary retention subsequently , and it was thought that amlodipine could be contributing, so the amlodipine was discontinued altogether, and in the last 2 days she was maintained on lisinopril 5 mg twice daily, and as of 11/05/2017, her blood pressure has ranged from 133/76 to 149/75. She had urinary retention. Initially, a Lester was placed. Subsequently, Lester was removed, but she had regular bladder scanning. Postvoid residual was in the 300s to 400s, and she had straight catheterization x2. Amlodipine was discontinued, as mentioned above, and blood pressure control achieved with lisinopril. Bethanechol was initiated on 11/03/2017, at 10 mg 4 times a day and , subsequently, titrated the next day to 20 mg 4 times a day, and she has had reduction in her postvoid residuals. Through the course of 11/05/2017, postvoids have decreased from 316 to as low as 207 cc. It is advised that urology consultation be considered if she continues to have urinary retention. She had been treated for a urinary tract infection prior to her cerebrovascular accident. When she had obtundation, she had an emergency department visit which included a head CT which showed no new hemorrhage. Urinalysis was obtained at that time, which had a positive nitrite, but negative leukocyte esterase, and only 1-3 white blood cells. She was initiated on antibiotics, which she had for approximately 3 days. Urine culture grew rao-sensitive E. coli. As there had never been symptoms of urinary tract infection, this was considered to be asymptomatic bacteriuria and antibiotics were discontinued. She had no further symptoms of urinary tract infection. Chronic renal insufficiency stage 3, this was found on admission. Her creatinine improved considerably with hydration, and on 11/04/2017, BUN was 29, creatinine was 0.8, and estimated GFR was greater than 60, so it is questionable whether she truly had chronic renal insufficiency. She had a history of chronic pain with sciatica, which mostly had remitted subsequent to the stroke. She was treated with acetaminophen and with a lidocaine patch to her left buttock and posterior thigh, and had minimal issues with pain. She also had some treatment with tramadol, as well as oxycodone, but these were considered to be potentially too sedating. She had a history of depression. Duloxetine was continued during her stay and she did not appear to have any complications or adverse effects from this treatment. PHYSICAL EXAMINATION: VITAL SIGNS: On the day before discharge, blood pressure is 149/75, heart rate is 83, respiratory rate is 16, oxygen saturation is 93% on room air, temperature is 36.8 degrees centigrade. GENERAL: This is a thin, elderly woman, sitting up in bed, cooperative, and in no acute distress. HEART: There is a regular rate and rhythm with no murmurs, rubs or gallops. LUNGS: Clear to auscultation bilaterally. EXTREMITIES: There is no cyanosis, clubbing, or edema. NEUROLOGIC: She is alert. She is oriented to herself. She gives automatic responses to social greetings, but she has no elaboration and attempts to add more complicated expression trail off as sentence fragments. She has no focal weakness. Her gait is shuffling with short steps using a front-wheeled walker. She is easily distractible. DISCHARGE CONDITION: Good. ACTIVITY: Ad yg, but she needs assistance for safety with all activities of daily living and mobility. DIET: Regular. DATE OF NEXT APPOINTMENT: She will follow up with her new attending physician at the [facility] to which she is [facility]. She can also follow up with her primary care provider, Karoline Frank NP. She will discharge to the [facility] nursing [facility]. MEDICATIONS AT DISCHARGE: 1. Acetaminophen 650 mg p.o. q.4 hours p.r.n. 2. Aspirin 81 mg p.o. daily. 3. Atorvastatin 10 mg p.o. q.h.s. 4. Bethanechol 20 mg p.o. q.i.d. 5. Duloxetine 40 mg p.o. q.h.s. 6. Levothyroxine 50 mcg p.o. daily. 7. Lidocaine patch daily. 8. Lisinopril 5 mg p.o. b.i.d. 9. Polyethylene glycol 17 g p.o. daily p.r.n. ISSUES TO BE ADDRESSED AT FOLLOWUP: 1. Mobility, activities of the daily living, cognition and communication. She will continue to have therapies at the [facility] nursing [facility]. She can follow up with her new attending there, as well as with her primary care provider, Karoline Frank. 2. Hypertension. She should have blood pressure monitoring and medications adjusted as needed. 3. Urinary retention. Continue bethanechol for now. She should have regular bladder scanning and straight catheterization if she is retaining greater than 300-400 cc, and consider evaluation with Urology if she does not normalize in her urinary function. 4. Code status was discussed with the patient and the daughter, and she prefers Do Not Resuscitate. Copy requested to: [facility] Attn: Attending Physician /[id number]/MODL MTDD
[2017-11-05] MEDS: ATORVASTATIN CALCIUM 10 MG TAB PO SCH (20:02)
[2017-11-05] MEDS: DULoxetine 20 MG CAP PO SCH (20:02)
[2017-11-05] MEDS: ACETAMINOPHEN 325 MG TAB PO PRN (20:07)
[2017-11-05] MEDS: PATCH REMOVAL 1 EA PATCH TD SCH (21:54)
[2017-11-06 06:45] VITALS: BP 138/71; PULSE 83; TEMP 98; O2SAT 95
[2017-11-06] MEDS: BETHANECHOL 10 MG TAB PO SCH ×3 (07:16→15:16)
[2017-11-06] MEDS: LEVOTHYROXINE 50 MCG TAB PO SCH (07:16)
[2017-11-06] MEDS: ASPIRIN EC 81 MG TAB PO SCH (08:23)
[2017-11-06] MEDS: LISINOPRIL 5 MG TAB PO SCH (08:23)
[2017-11-06] MEDS: LIDOCAINE 5% 1 EA PATCH TD SCH (09:10)
== END 2017-11-06 16:07 | DRG 57 ==
LOC: BREH 15:10
PROVIDERS: ADMIT Internal Medicine; ATTEND Internal Medicine
PROC: F07M3ZZ Motor Function Treatment of Musculoskeletal System - Whole Body (ICD-10-PCS; principal; 2017-10-27)
PROC: F0636ZZ Communicative/Cognitive Integration Skills Treatment of Neurological System - Whole Body (ICD-10-PCS; principal; 2017-10-27)
PROC: F08Z7ZZ Vocational Activities and Functional Community or Work Reintegration Skills Treatment (ICD-10-PCS; principal; 2017-10-27)
DX: I69.151 Hemiplegia and hemiparesis following nontraumatic intracerebral hemorrhage affecting right dominant side (principal); I69.193 Ataxia following nontraumatic intracerebral hemorrhage; I69.218 Other symptoms and signs involving cognitive functions following other nontraumatic intracranial hemorrhage; N39.42 Incontinence without sensory awareness; N18.3 Chronic kidney disease, stage 3 (moderate); M54.30 Sciatica, unspecified side; F32.9 Major depressive disorder, single episode, unspecified; E03.9 Hypothyroidism, unspecified; E78.5 Hyperlipidemia, unspecified; G89.29 Other chronic pain; I10 Essential (primary) hypertension; R33.9 Retention of urine, unspecified; Z66 Do not resuscitate
CPT/HCPCS: 92507-GN; 92522-GN; 97110-GO; 97110-GP; 97112-GO; 97112-GP; 97116-GP; 97162-GP; 97166-GO; 97530-GO; 97530-GP; 97532-GO; 97535-GO; 99366-GO

== ENCOUNTER 2017-10-31 10:31 | Emergency (ER) | payer OTHER ==
--- NOTE | 2017-10-31 10:37 | EDPHY ---
H & P Time Seen by Provider: 10/31/17 10:37 Allergies/Adverse Reactions: NKDA Allergy (Unknown, Uncoded 10/20/17 13:09) Home Medications: Medication Instructions Recorded Aspirin EC [Aspirin EC 81 mg (*)] 81 mg PO DAILY 10/27/17 Atorvastatin Calcium [Lipitor 10 10 mg PO HS 10/27/17 mg (*)] Duloxetine HCl [Cymbalta] 40 mg PO DAILY 10/27/17 Levothyroxine [Synthroid 50 mcg 50 mcg PO DAILY06 10/27/17 (*)] Lisinopril [Zestril 2.5 mg (*)] 2.5 mg PO DAILY 10/27/17 Solifenacin Succinate [Vesicare 5 5 mg PO DAILY 10/27/17 MG (*)] traMADol [Ultram 50 mg (*)] 50 - 100 mg PO Q6 PRN 10/27/17 Medical Decision Making - Diagnostics Imaging Results: Imaging Impressions Head CT 10/31/17 10:48 Impression: Underlying atrophy and white matter disease, without acute abnormality identified. Results called to Dr. Santhosh Flaherty at 11:30 AM at the time of the interpretation. Imaging: Discussed imaging studies w/ medical records library professor Radiologist, I viewed and interpreted images myself ED Course/Re-evaluation: CHIEF COMPLAINT: Lethargic, dizziness HISTORY OF PRESENT ILLNESS: The patient is an 82 y/o female with dementia and disorientation at baseline who arrives at the recommendation of rehab doctor for evaluation of lethargy and dizziness after medication administration this morning. She received 150mg Tramadol and 2 antihypertensives at the same time this morning. She denies any complaints and does not know why she is here. She doesn't remember fainting or even being at the rehab facility and it sounds like this is her baseline per records. REVIEW OF SYSTEMS: Unobtainable due to dementia. PHYSICAL EXAM: HR, BP 161/68, O2 Sat, RR. Temp noted General Appearance: Alert, well hydrated, disoriented, and non-toxic appearing. Thin, frail. Head: Atraumatic without scalp tenderness or obvious injury Eyes: Pupils equal, round, reactive to light and accommodation, EOMI, no trauma , no injection. Nose: Atraumatic, no rhinorrhea, clear. Throat: Mucus membranes moist. Neck: Supple Respiratory: No retractions, no distress, no wheezes, and no accessory muscle use. Lungs are clear to auscultation bilaterally. Cardiovascular: Regular rate and rhythm, no murmurs, rubs, or gallops. Good capillary refill all extremities. Gastrointestinal: Abdomen is soft, nontender, non-distended, no masses, no rebound, no guarding, no peritoneal signs. Musculoskeletal: Normal active ROM of all extremities, atraumatic. Neurological: Alert, oriented x1, and interactive. The patient has non-focal cranial nerves, motor, sensory, and cerebellar exam. Skin: No rashes, good turgor, no nodules on palpation. 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 Nonsmoker, no alcohol. Lives at [facility]. Prior medical records reviewed including rehab admission note 10/27/17. DIAGNOSTICS/PROCEDURES/CRITICAL CARE TIME: Head CT: atrophy and white matter disease, nothing acute DIFFERENTIAL DIAGNOSIS: The differential diagnosis for the patient's altered mental status included but was not limited to hypoglycemia, infectious process, electrolyte abnormality, head injury, neurologic process, anemia, cardiac process, and intoxicants. MEDICAL DECISION MAKING: This is a pleasant 82 y/o female with multi-infarct dementia who presents from rehab for evaluation of lethargy and dizziness after being administered 150mg Tramadol and 2 blood pressure medications at rehab. She denies any complaints here and is unable to contribute to history due to her dementia. She is A&Ox1 at baseline. No evidence of trauma. Normal neurologic exam apart from baseline disorientation. Plan for standard AMS work up including IV, labs, UA, and head CT. Head CT shows nothing acute. UA shows UTI. She had 800mL urine on bladder scan and a Lester catheter was placed and will recommend to keep in place for a couple days. Spoke with Dr. Fitch, hospitalist at rehab for transfer back to that facility. He requests urine culture and administering 1gm IV Ceftriaxone prior to discharge from the ED. - Data Points Laboratory Results: Laboratory Results 10/31/17 11:22 10/31/17 11:22 10/31/17 10/31/1710/31/18 11:28 11:22 11:22 WBC RBC Hgb Hct MCV MCH MCHC RDW Plt Count MPV Neut % (Auto) Lymph % (Auto) [place] % (Auto) Eos % (Auto) Baso % (Auto) Nucleat RBC Rel Count Absolute Neuts (auto) Absolute Lymphs (auto) Absolute Monos (auto) Absolute Eos (auto) Absolute Basos (auto) Absolute Nucleated RBC Immature Gran % Immature Gran # PT 13.2 SEC SEC (12.0-15.0) INR 0.98 (0.83-1.16) APTT 24.3 SEC SEC (23.0-38.0) Sodium 144 mEq/L mEq/L (135-145) Potassium 4.2 mEq/L mEq/L (3.5-5.2) Chloride 103 mEq/L mEq/L (97-110) Carbon Dioxide 27 mEq/l mEq/l (22-31) Anion Gap 14 mEq/L mEq/L (8-16) BUN 24 mg/dL H mg/dL (7-23) Creatinine 1.3 mg/dL H mg/dL (0.6-1.0) Estimated GFR 39 Glucose 118 mg/dL H mg/dL (70-100) Calcium 9.7 mg/dL mg/dL (8.5-10.4) Total Bilirubin 0.4 mg/dL mg/dL (0.1-1.4) Conjugated Bilirubin 0.2 mg/dL mg/dL (0.0-0.5) Unconjugated Bilirubin 0.2 mg/dL mg/dL (0.0-1.1) AST 31 IU/L IU/L (14-46) ALT 44 IU/L IU/L (9-52) Alkaline Phosphatase 95 IU/L IU/L (38-126) Total Protein 6.2 g/dL L g/dL (6.3-8.2) Albumin 4.1 g/dL g/dL (3.5-5.0) Urine Color YELLOW Urine Appearance CLEAR Urine pH 5.0 (5.0-7.5) Ur Specific Damar 1.005 (1.002-1.030) Urine Protein NEGATIVE (NEGATIVE) Urine Ketones NEGATIVE (NEGATIVE) Urine Blood 2+ H (NEGATIVE) Urine Nitrate POSITIVE H (NEGATIVE) Urine Bilirubin NEGATIVE (NEGATIVE) Urine Urobilinogen NEGATIVE EU EU (0.2-1.0) Ur Leukocyte Esterase NEGATIVE (NEGATIVE) Urine RBC 1-3 /hpf /hpf (0-3) Urine WBC 1-3 /hpf /hpf (0-3) Ur Epithelial Cells NONE SEEN /lpf /lpf (NONE-1+) Urine Bacteria 4+ /hpf H /hpf (NONE SEEN) Urine Mucus TRACE /lpf /lpf (NONE-1+) Urine Glucose NEGATIVE (NEGATIVE) 10/31/17 11:22 WBC 11.73 10^3/uL H 10^3/uL (3.80-9.50) RBC 4.79 10^6/uL 10^6/uL (4.18-5.33) Hgb 15.2 g/dL g/dL (12.6-16.3) Hct 43.3 % % (38.0-47.0) MCV 90.4 fL fL (81.5-99.8) MCH 31.7 pg pg (27.9-34.1) MCHC 35.1 g/dL g/dL (32.4-36.7) RDW 13.8 % % (11.5-15.2) Plt Count 253 10^3/uL 10^3/uL (150-400) MPV 9.2 fL fL (8.7-11.7) Neut % (Auto) 89.4 % H % (39.3-74.2) Lymph % (Auto) 4.3 % L % (15.0-45.0) [place] % (Auto) 5.5 % % (4.5-13.0) Eos % (Auto) 0.0 % L % (0.6-7.6) Baso % (Auto) 0.3 % % (0.3-1.7) Nucleat RBC Rel Count 0.0 % % (0.0-0.2) Absolute Neuts (auto) 10.49 10^3/uL H 10^3/uL (1.70-6.50) Absolute Lymphs (auto) 0.50 10^3/uL L 10^3/uL (1.00-3.00) Absolute Monos (auto) 0.65 10^3/uL 10^3/uL (0.30-0.80) Absolute Eos (auto) 0.00 10^3/uL L 10^3/uL (0.03-0.40) Absolute Basos (auto) 0.03 10^3/uL 10^3/uL (0.02-0.10) Absolute Nucleated RBC 0.00 10^3/uL 10^3/uL (0-0.01) Immature Gran % 0.5 % % (0.0-1.1) Immature Gran # 0.06 10^3/uL 10^3/uL (0.00-0.10) PT INR APTT Sodium Potassium Chloride Carbon Dioxide Anion Gap BUN Creatinine Estimated GFR Glucose Calcium Total Bilirubin Conjugated Bilirubin Unconjugated Bilirubin AST ALT Alkaline Phosphatase Total Protein Albumin Urine Color Urine Appearance Urine pH Ur Specific [place] Urine Protein Urine Ketones Urine Blood Urine Nitrate Urine Bilirubin Urine Urobilinogen Ur Leukocyte Esterase Urine RBC Urine WBC Ur Epithelial Cells Urine Bacteria Urine Mucus Urine Glucose Departure - Departure Disposition: [facility] Inpatient Acute Clinical Impression: Urinary retention UTI (urinary tract infection) Qualifiers: Urinary tract infection type: site unspecified Hematuria presence: without hematuria Qualified Code(s): N39.0 - Urinary tract infection, site not specified Condition: Fair Referrals: Amy Stewart MD [Primary Care Provider] - As per Instructions Report Scribed for: Santhosh Flaherty Report Scribed by: Nelsy Dias Date of Report: 10/31/17 Time of Report: 10:48
[2017-10-31 11:34] LABS: PLATELET COUNT 253 10^3/uL (150-400)
[2017-10-31 11:41] LABS: INR 0.98 (0.83-1.16); PROTIME(PATIENT) 13.2 SEC (12.0-15.0)
[2017-10-31 12:29] VITALS: RESP 16
[2017-10-31 12:31] VITALS: TEMP 97.9
[2017-10-31 13:55] VITALS: BP 142/54; PULSE 82; O2SAT 96
== END 2017-10-31 13:53 ==
LOC: EDUNIT#
DX: N39.0 Urinary tract infection, site not specified (principal)
CPT/HCPCS: 70450; 96365; 99285; J0696

== ENCOUNTER 2017-11-13 15:52 | Emergency (ER) | payer OTHER ==
--- NOTE | 2017-11-13 16:04 | EDPHY ---
H & P HPI/ROS: CHIEF COMPLAINT: Collapsed HISTORY OF PRESENT ILLNESS: The patient is an 82-year-old female with a history of cerebral vascular accident and cognitive impairment who presents emergency department via EMS after collapsing while at a nursing care facility. The patient was witnessed to collapse and fall. Her initial blood pressure was low at 77. When EMS arrived she had normal vital signs. Her initial systolic blood pressure was 130s with a heart rate of 80. A blood glucose was 120. Prior to the patient arriving to the emergency department I received a call from the patient's primary care provider, Avinash Calloway NP. She states that the patient has a known CVA. She spoke with the patient's POA, Sushila Wong. She does not want the patient to be admitted or workup in the emergency department. She requested that the ambulance be turned around in route. I informed the CREATIVE COORDINATOR that this was not possible. On the phone we arranged plan for the patient to be limited to the emergency department from EMS and then transferred back to her care facility. REVIEW OF SYSTEMS: My complete review of systems is negative except as mentioned in the HPI. Past Medical/Surgical History: Includes CVA, cognitive impairment, gait instability, hypertension, urinary tension, asymptomatic bacteremia, chronic renal insufficiency, chronic pain Smoking Status: Never smoked Physical Exam: Vitals noted GENERAL: Well-appearing, in no acute distress, alert. HEENT: Eyes normal to inspection, normal pharynx, no signs of dehydration. No head trauma. NECK: No thyromegaly, no lymphadenopathy, supple. No cervical tenderness palpation. No step-off. RESPIRATORY: Clear to auscultation bilaterally, no rales, rhonchi or wheezing. CVS: Regular rate and rhythm, no rubs, murmurs, or gallops. ABDOMEN: Soft, nontender, nondistended, no organomegaly. Normal BACK: Normal to inspection, no CVA tenderness. No spinal tenderness SKIN: Normal color, no rash, warm, dry. No pallor. EXTREMITIES: No pedal edema, no calf tenderness, no Homans sign or cords, no joint swelling. NEURO/PSYCH: Alert and oriented x1, normal mood and affect, normal motor sensory exam. No obvious cranial nerve deficit. Constitutional: Initial Vital Signs Temperature (C) 36.8 C 11/13/17 15:58 Heart Rate 97 11/13/17 15:58 Respiratory Rate 18 11/13/17 15:58 Blood Pressure 123/67 H 11/13/17 15:58 O2 Sat (%) 93 11/13/17 15:58 O2 Delivery Mode Room Air Allergies/Adverse Reactions: NKDA Allergy (Unknown, Uncoded 10/20/17 13:09) Home Medications: Medication Instructions Recorded Aspirin EC [Aspirin EC 81 mg (*)] 81 mg PO DAILY 10/27/17 Atorvastatin Calcium [Lipitor 10 10 mg PO HS 10/27/17 mg (*)] Duloxetine HCl [Cymbalta] 40 mg PO DAILY 10/27/17 Levothyroxine [Synthroid 50 mcg 50 mcg PO DAILY06 10/27/17 (*)] Acetaminophen [Tylenol 325mg (*)] 650 mg PO Q4HRS PRN tab 11/05/17 Bethanechol [Urecholine (*)] 20 mg PO QID tab 11/05/17 Lidocaine 5% [Lidoderm 5% Patch 1 ea TD DAILY patch 11/05/17 (*)] Lisinopril [Zestril 5 mg (*)] 5 mg PO BID tab 11/05/17 Patch Removal 1 ea TD DAILY21 patch 11/05/17 Polyethylene Glycol 3350 [Miralax 17 gm PO DAILY PRN pkt 11/05/17 17 gm (*)] Cephalexin [Keflex (*)] 500 mg PO QID #12 cap 11/13/17 Medical Decision Making - Diagnostics Imaging Results: Imaging Impressions Head CT 11/13/17 16:30 Impression: 1. Moderate dilatation of the lateral ventricles as well as third and fourth ventricles. This could be related to central atrophy. Consider possibility of mild hydrocephalus or normal pressure hydrocephalus, stable in appearance. 2. No hemorrhage, mass effect, or definite acute peripheral infarct. 3. Stable moderate nonspecific hypodensities in the white matter of bilateral cerebral hemispheres. Differential diagnosis includes microvascular ischemic disease, post-infectious/post-inflammatory sequela, atypical demyelinating disease, or migraine-related sequela. Small white matter lacunar infarcts may also have this appearance. 4. There is also stable small lacunar infarct central ravindra. 5. Maturation of lacunar infarct anterior left basal ganglia extending to the anterolateral margin of the left lateral ventricle. If symptoms worsen, additional imaging may be necessary. Findings discussed with Desiree Vera M.D. at 17:29 hour, 11/13/2017. ED Course/Re-evaluation: In the emergency department I met EMS on arrival. I took report from the pumping station engineer. I discussed the plan with the nursing staff. 1605: Individual arrived and stated she was "acting p.o. way. She stated that the patient's daughters in [place] and she was contacted. They do want further workup performed. I discussed my conversation with Avinash Calloway NP who stated the she was the patient's primary care provider. I discussed that Leonel Wong is the reported POA and both Brodie and Marvin want nothing done. I requested the individual in the emergency department contact either Rishi or Marvin to give me further information. 1625: The patient's POA, Sushila Wong arrived. She states that she changed her mind. She would like initial workup in the emergency department. I discussed the plan with the patient and care providers. Laboratory studies, EKG and head CT were ordered. The patient was not made a stroke alert. Per report she has stroke type event either yesterday or this morning. The timing is unclear. EKG shows normal sinus rhythm, [normal rate, normal axis, normal intervals]. Q- wave in V1 and V2. There are [no ST or T-wave abnormalities]. Head CT: Please refer the dictated report by Dr. Mehrdad Farooq. I discussed the case with Dr. Farooq. Patient has a large lateral ventricles. Patient has involving CVA that was seen previously. No mass or hemorrhage. I discussed the findings with the patient and family. I answered all their questions. I contacted Dr. Salcido who was on-call for Dr. Stewart. He was informed of the CT results. I discussed limitations of testing thus far. At this time the family does not want to have the patient stay in the hospital for repeat cardiac enzymes or MRI imaging. The patient did have nitrites and positive white cells in her urine. Because of this she was given Keflex orally. She is given a 3 day course of Keflex upon discharge. The patient was able to ambulate close to baseline. The family was offered admission. They would prefer discharge back to the nursing facility. They are given warnings prior to leaving. Differential Diagnosis: My differential includes but is not limited to ischemic CVA, hemorrhagic CVA, cognitive impairment, hypertensive urgency, hypertensive emergency, urinary tract infection, electrolyte abnormality, sugar abnormality dysrhythmia, ACS, acute RI, dehydration - Data Points Laboratory Results: Laboratory Results 11/13/17 16:00 11/13/17 16:00 11/13/17 11/13/17 11/13/17 17:15 16:00 16:00 WBC RBC Hgb Hct MCV MCH MCHC RDW Plt Count MPV Neut % (Auto) Lymph % (Auto) [place] % (Auto) Eos % (Auto) Baso % (Auto) Nucleat RBC Rel Count Absolute Neuts (auto) Absolute Lymphs (auto) Absolute Monos (auto) Absolute Eos (auto) Absolute Basos (auto) Absolute Nucleated RBC Immature Gran % Immature Gran # PT 13.0 SEC SEC (12.0-15.0) INR 0.96 (0.83-1.16) APTT 25.3 SEC SEC (23.0-38.0) Sodium 143 mEq/L mEq/L (135-145) Potassium 4.3 mEq/L mEq/L (3.5-5.2) Chloride 103 mEq/L mEq/L (97-110) Carbon Dioxide 25 mEq/l mEq/l (22-31) Anion Gap 15 mEq/L mEq/L (8-16) BUN 26 mg/dL H mg/dL (7-23) Creatinine 0.9 mg/dL mg/dL (0.6-1.0) Estimated GFR 60 Glucose 126 mg/dL H mg/dL (70-100) Calcium 9.4 mg/dL mg/dL (8.5-10.4) Troponin I 0.012 ng/mL ng/mL (0.000-0.034) Urine Color YELLOW Urine Appearance CLEAR Urine pH 6.0 (5.0-7.5) Ur Specific [place] 1.014 (1.002-1.030) Urine Protein NEGATIVE (NEGATIVE) Urine Ketones NEGATIVE (NEGATIVE) Urine Blood NEGATIVE (NEGATIVE) Urine Nitrate POSITIVE H (NEGATIVE) Urine Bilirubin NEGATIVE (NEGATIVE) Urine Urobilinogen NEGATIVE EU EU (0.2-1.0) Ur Leukocyte Esterase TRACE H (NEGATIVE) Urine RBC 1-3 /hpf /hpf (0-3) Urine WBC 3-5 /hpf H /hpf (0-3) Ur Epithelial Cells NONE SEEN /lpf /lpf (NONE-1+) Urine Mucus TRACE /lpf /lpf (NONE-1+) Urine Glucose NEGATIVE (NEGATIVE) 11/13/17 16:00 WBC 6.96 10^3/uL 10^3/uL (3.80-9.50) RBC 4.09 10^6/uL L 10^6/uL (4.18-5.33) Hgb 13.2 g/dL g/dL (12.6-16.3) Hct 38.3 % % (38.0-47.0) MCV 93.6 fL fL (81.5-99.8) MCH 32.3 pg pg (27.9-34.1) MCHC 34.5 g/dL g/dL (32.4-36.7) RDW 14.2 % % (11.5-15.2) Plt Count 277 10^3/uL 10^3/uL (150-400) MPV 9.5 fL fL (8.7-11.7) Neut % (Auto) 78.5 % H % (39.3-74.2) Lymph % (Auto) 13.1 % L % (15.0-45.0) [place] % (Auto) 7.0 % % (4.5-13.0) Eos % (Auto) 0.4 % L % (0.6-7.6) Baso % (Auto) 0.4 % % (0.3-1.7) Nucleat RBC Rel Count 0.0 % % (0.0-0.2) Absolute Neuts (auto) 5.46 10^3/uL 10^3/uL (1.70-6.50) Absolute Lymphs (auto) 0.91 10^3/uL L 10^3/uL (1.00-3.00) Absolute Monos (auto) 0.49 10^3/uL 10^3/uL (0.30-0.80) Absolute Eos (auto) 0.03 10^3/uL 10^3/uL (0.03-0.40) Absolute Basos (auto) 0.03 10^3/uL 10^3/uL (0.02-0.10) Absolute Nucleated RBC 0.00 10^3/uL 10^3/uL (0-0.01) Immature Gran % 0.6 % % (0.0-1.1) Immature Gran # 0.04 10^3/uL 10^3/uL (0.00-0.10) PT INR APTT Sodium Potassium Chloride Carbon Dioxide Anion Gap BUN Creatinine Estimated GFR Glucose Calcium Troponin I Urine Color Urine Appearance Urine pH Ur Specific [place] Urine Protein Urine Ketones Urine Blood Urine Nitrate Urine Bilirubin Urine Urobilinogen Ur Leukocyte Esterase Urine RBC Urine WBC Ur Epithelial Cells Urine Mucus Urine Glucose Medications Given: Discontinued Medications Sodium Chloride (Ns) 250 mls @ 500 mls/hr IV EDNOW ONE PRN Reason: Protocol Stop: 11/13/17 16:59 Last Admin: 11/13/17 16:42 Dose: 250 mls Departure - Departure Disposition: Home, Routine, Self-Care Clinical Impression: Syncope and collapse Altered mental status Qualifiers: Altered mental status type: disorientation Qualified Code(s): R41.0 - Disorientation, unspecified Urinary tract infection Qualifiers: Urinary tract infection type: acute cystitis Hematuria presence: without hematuria Qualified Code(s): N30.00 - Acute cystitis without hematuria Condition: Good Instructions: Urinary Tract Infection in Women (DC) Additional Instructions: Return with worsening symptoms or any other concerns. Take your entire course of antibiotics. Referrals: Amy Stewart MD [Medical Doctor] - 3-4 days, if not improved
[2017-11-13] MEDS ORDERED: NS 250 ML IV ONE (16:30)
[2017-11-13 16:42] LABS: PLATELET COUNT 277 10^3/uL (150-400)
--- NOTE | 2017-11-13 16:46 | CPEKG ---
Heart Rate: 89 RR Interval: 674 P-R Interval: 184 QRSD Interval: 82 QT Interval: 388 QTC Interval: 473 P [place]: 73 QRS [place]: 58 T Wave [place]: 66 EKG Severity - ABNORMAL ECG - EKG Impression: SINUS RHYTHM EKG Impression: CONSIDER ANTEROSEPTAL INFARCT Electronically Signed By: Paolo Peralta 15-Nov-2017 09:39:17
[2017-11-13 16:49] LABS: INR 0.96 (0.83-1.16)
[2017-11-13 17:50] VITALS: RESP 16; O2SAT 95
[2017-11-13] MEDS ORDERED: CEPHALEXIN 500MG PREPACK#4 BTL TAKEHOME ONE (18:53)
[2017-11-13 19:13] VITALS: BP 138/76; PULSE 80; TEMP 98.6
--- NOTE | 2017-11-16 11:30 | CPEKG ---
Heart Rate: 88 RR Interval: 682 P-R Interval: 180 QRSD Interval: 78 QT Interval: 384 QTC Interval: 465 P [place]: 71 QRS [place]: 52 T Wave [place]: 33 EKG Severity - OTHERWISE NORMAL ECG - EKG Impression: SINUS RHYTHM EKG Impression: MINIMAL ST DEPRESSION, INFERIOR LEADS EKG Impression: poor r wave progression, anterior leads Electronically Signed For: Paolo Peralta 16-Nov-2017 11:31:37
== END 2017-11-13 19:33 | disposition home or self-care (01) ==
LOC: EDUNIT#
DX: R55 Syncope and collapse (principal); R41.0 Disorientation, unspecified; N30.00 Acute cystitis without hematuria; I10 Essential (primary) hypertension; B96.89 Other specified bacterial agents as the cause of diseases classified elsewhere; E86.9 Volume depletion, unspecified; Z79.82 Long term (current) use of aspirin; Z86.73 Personal history of transient ischemic attack (TIA), and cerebral infarction without residual deficits

== ENCOUNTER 2018-02-08 10:30 | Inpatient (IN) | payer OTHER ==
[2018-02-08] MEDS ORDERED: NS 1,000 ML IV ONE (10:42)
--- NOTE | 2018-02-08 10:46 | EDPHY ---
H & P Time Seen by Provider: 02/08/18 10:34 HPI/ROS: CHIEF COMPLAINT: Decreased mental status HISTORY OF PRESENT ILLNESS: Patient is an 82-year-old female with a history of stroke last year with resultant cognitive impairment as well as gait instability. She also has a history of hypertension urinary retention chronic renal insufficiency as well as chronic pain. Her care provide her found her lying on the floor in the bathroom at assisted living today. She was incontinent of stool on the floor. No sign of trauma. She was lethargic and minimally responsive. She will answer simple questions and moves all extremities. Daughter reports that the patient had a urinary tract infection about a week ago and was treated with "a pill". She is not sure of her other medications. She does not know of any recent fevers or GI symptoms. REVIEW OF SYSTEMS: Unable to obtain secondary to condition EXAM: GENERAL: Thin, minimally responsive, HEAD: Atraumatic, normocephalic. EYES: Open, Pupils equal round and reactive to light, extraocular movements intact, sclera anicteric, conjunctiva are normal. ENT: TMs normal, nares patent, oropharynx clear without exudates. Slightly dry mucous membranes. NECK: Normal range of motion, supple without lymphadenopathy or JVD. LUNGS: Breath sounds clear to auscultation bilaterally and equal. No wheezes rales or rhonchi. HEART: Regular rate and rhythm without murmurs, rubs or gallops. ABDOMEN: Soft, nontender, normoactive bowel sounds. No guarding, no rebound. No masses appreciated. BACK: No CVA tenderness, no spinal tenderness, step-offs or deformities EXTREMITIES: Normal range of motion, no pitting or edema. No clubbing or cyanosis. NEUROLOGICAL: Cranial nerves II through XII grossly intact. Normal speech, normal gait. 5/5 strength, normal movement in all extremities, normal sensation PSYCH: Normal mood, normal affect. SKIN: Warm, dry, normal turgor, no visible rashes or lesions. Source: Patient, Family, EMS Exam Limitations: Clinical condition - Medical/Surgical History Hx Asthma: No Hx Chronic Respiratory Disease: No Hx Diabetes: No Hx Cardiac Disease: No Hx Renal Disease: No Hx Cirrhosis: No Hx Alcoholism: No Hx HIV/AIDS: No Hx Splenectomy or Spleen Trauma: No Other PMH: CVA, dementia, urinary retention, suzy hearing loss, hypercholesterol , htn, hypothroidism, hystorectomy, apendectomy - Family History Significant Family History: No pertinent family hx - Social History Smoking Status: Never smoked Alcohol Use: None Drug Use: None Constitutional: Initial Vital Signs Heart Rate 86 02/08/18 10:43 Respiratory Rate 14 02/08/18 10:43 Blood Pressure 140/90 H 02/08/18 10:43 O2 Sat (%) 88 L 02/08/18 10:43 O2 Delivery Mode Nasal Cannula O2 (L/minute) 3 Allergies/Adverse Reactions: No Known Drug Allergies Allergy (Verified 02/08/18 10:43) NKDA Allergy (Unknown, Uncoded 10/20/17 13:09) Home Medications: Medication Instructions Recorded Aspirin EC [Aspirin EC 81 mg (*)] 81 mg PO DAILY 10/27/17 Atorvastatin Calcium [Lipitor 10 10 mg PO HS 10/27/17 mg (*)] Duloxetine HCl [Cymbalta] 40 mg PO DAILY 10/27/17 Levothyroxine [Synthroid 50 mcg 50 mcg PO DAILY06 10/27/17 (*)] Acetaminophen [Tylenol 325mg (*)] 650 mg PO Q4HRS PRN tab 11/05/17 Bethanechol [Urecholine (*)] 20 mg PO QID tab 11/05/17 Lidocaine 5% [Lidoderm 5% Patch] 1 ea TD DAILY patch 11/05/17 Lisinopril [Zestril 5 mg (*)] 5 mg PO BID tab 11/05/17 Patch Removal 1 ea TD DAILY21 patch 11/05/17 Polyethylene Glycol 3350 [Miralax 17 gm PO DAILY PRN pkt 11/05/17 17 gm (*)] Cephalexin [Keflex (*)] 500 mg PO QID #12 cap 11/13/17 Medical Decision Making - Diagnostics EKG Interpretation: An EKG obtained and was read and documented in trace view. Please see trace view for full reading and report. Sinus rhythm, significant artifact, PACs Imaging Results: Imaging Impressions Chest X-Ray 02/08/18 10:42 Impression: Negative for acute cardiopulmonary abnormality.. Head CT 02/08/18 10:42 Impression: 1. No subdural hematoma, intracranial hemorrhage or acute process. 2. 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 3. Clear sinuses. Findings discussed with Emergency Department physician, Ed Lopez on 2017, 11:33. Imaging: I viewed and interpreted images myself ED Course/Re-evaluation: Patient has sepsis and urinary tract infection. She has received a fluid bolus and we are obtaining 2nd lactate. I discussed the case with hospital service and they will admit to Dr. Chopra. I have ordered Rocephin. Differential Diagnosis: Partial list of the Differential diagnosis considered include but were not limited to; urinary tract infection, sepsis, CVA and although unlikely based on the history and physical exam, I also considered hemorrhage, acute coronary disease. Critical Care Time: Critical care time spent by me, Dr. Lopez exclusive with this patient was 35 minutes, exclusive of the PA time exclusive of procedures. The organ system that was at risk was cardiovascular and I gave IV fluids, diagnosis, medications and admission to prevent worsening of the patient's condition - Data Points Laboratory Results: Laboratory Results 02/08/18 10:45 02/08/18 10:45 02/08/18 02/08/18 02/08/18 11:45 10:55 10:45 WBC RBC Hgb POC Hgb Hct POC Hct MCV MCH MCHC RDW Plt Count MPV Neut % (Auto) Lymph % (Auto) Sharp % (Auto) Eos % (Auto) Baso % (Auto) Nucleat RBC Rel Count Absolute Neuts (auto) Absolute Lymphs (auto) Absolute Monos (auto) Absolute Eos (auto) Absolute Basos (auto) Absolute Nucleated RBC Immature Gran % Immature Gran # PT INR APTT VBG Lactic Acid 3.3 mmol/L H mmol/L (0.7-2.1) POC Sodium Sodium 144 mEq/L mEq/L (135-145) POC Potassium Potassium 4.1 mEq/L mEq/L (3.5-5.2) POC Chloride Chloride 103 mEq/L mEq/L (97-110) Carbon Dioxide 24 mEq/l mEq/l (22-31) Anion Gap 17 mEq/L H mEq/L (8-16) POC BUN BUN 22 mg/dL mg/dL (7-23) Creatinine 0.7 mg/dL mg/dL (0.6-1.0) POC Creatinine Estimated GFR > 60 Glucose 194 mg/dL H mg/dL (70-100) POC Glucose Calcium 9.1 mg/dL mg/dL (8.5-10.4) Total Bilirubin 0.6 mg/dL mg/dL (0.1-1.4) Troponin I 0.024 ng/mL ng/mL (0.000-0.034) Urine Color YELLOW Urine Appearance HAZY Urine pH 6.0 (5.0-7.5) Ur Specific [place] 1.012 (1.002-1.030) Urine Protein 1+ H (NEGATIVE) Urine Ketones NEGATIVE (NEGATIVE) Urine Blood 1+ H (NEGATIVE) Urine Nitrate NEGATIVE (NEGATIVE) Urine Bilirubin NEGATIVE (NEGATIVE) Urine Urobilinogen NEGATIVE EU EU (0.2-1.0) Ur Leukocyte Esterase 3+ H (NEGATIVE) Urine RBC 5-10 /hpf H /hpf (0-3) Urine WBC 50-182 /hpf H /hpf (0-3) Ur Epithelial Cells NONE SEEN /lpf /lpf (NONE-1+) Urine Mucus TRACE /lpf /lpf (NONE-1+) Urine Glucose NEGATIVE (NEGATIVE) 02/08/18 02/08/18 02/08/18 10:45 10:45 10:44 WBC 11.57 10^3/uL H 10^3/uL (3.80-9.50) RBC 4.67 10^6/uL 10^6/uL (4.18-5.33) Hgb 14.3 g/dL g/dL (12.6-16.3) POC Hgb 15.0 gm/dL gm/dL (12.6-16.3) Hct 44.0 % % (38.0-47.0) POC Hct 44 % % (38-47) MCV 94.2 fL fL (81.5-99.8) MCH 30.6 pg pg (27.9-34.1) MCHC 32.5 g/dL g/dL (32.4-36.7) RDW 13.0 % % (11.5-15.2) Plt Count 379 10^3/uL 10^3/uL (150-400) MPV 8.9 fL fL (8.7-11.7) Neut % (Auto) 80.9 % H % (39.3-74.2) Lymph % (Auto) 11.8 % L % (15.0-45.0) Sharp % (Auto) 5.3 % % (4.5-13.0) Eos % (Auto) 0.3 % L % (0.6-7.6) Baso % (Auto) 0.3 % % (0.3-1.7) Nucleat RBC Rel Count 0.0 % % (0.0-0.2) Absolute Neuts (auto) 9.35 10^3/uL H 10^3/uL (1.70-6.50) Absolute Lymphs (auto) 1.37 10^3/uL 10^3/uL (1.00-3.00) Absolute Monos (auto) 0.61 10^3/uL 10^3/uL (0.30-0.80) Absolute Eos (auto) 0.04 10^3/uL 10^3/uL (0.03-0.40) Absolute Basos (auto) 0.04 10^3/uL 10^3/uL (0.02-0.10) Absolute Nucleated RBC 0.00 10^3/uL 10^3/uL (0-0.01) Immature Gran % 1.4 % H % (0.0-1.1) Immature Gran # 0.16 10^3/uL H 10^3/uL (0.00-0.10) PT 13.3 SEC SEC (12.0-15.0) INR 0.99 (0.83-1.16) APTT 25.2 SEC SEC (23.0-38.0) VBG Lactic Acid POC Sodium 141 mEq/L mEq/L (135-145) Sodium POC Potassium 4.0 mEq/L mEq/L (3.3-5.0) Potassium POC Chloride 109 mEq/L mEq/L (97-110) Chloride Carbon Dioxide Anion Gap POC BUN 22 mg/dL mg/dL (7-23) BUN Creatinine POC Creatinine 0.8 mg/dL mg/dL (0.6-1.0) Estimated GFR Glucose POC Glucose 199 mg/dL H mg/dL (70-100) Calcium Total Bilirubin Troponin I Urine Color Urine Appearance Urine pH Ur Specific [place] Urine Protein Urine Ketones Urine Blood Urine Nitrate Urine Bilirubin Urine Urobilinogen Ur Leukocyte Esterase Urine RBC Urine WBC Ur Epithelial Cells Urine Mucus Urine Glucose Medications Given: Discontinued Medications Sodium Chloride (Ns) 1,000 mls @ 0 mls/hr IV ONCE ONE; Wide Open PRN Reason: Protocol Stop: 02/08/18 10:43 Last Admin: 02/08/18 10:54 Dose: 1,000 mls Sodium Chloride (Ns) 1,400 mls @ 2,800 mls/hr 30 ml/kg infuse over 30 min ( 1400 ml) IV EDNOW ONE PRN Reason: Protocol Stop: 02/08/18 11:44 Last Admin: 02/08/18 11:29 Dose: 1,400 mls Ceftriaxone Sodium/Dextrose (Rocephin 1 Gm (Premix)) 50 mls @ 100 mls/hr IV EDNOW ONE PRN Reason: Protocol Stop: 02/08/18 13:27 Last Admin: 02/08/18 13:03 Dose: 50 mls Point of Care Test Results: 02/08/18 10:44 POC Sodium 141 POC Potassium 4.0 POC Chloride 109 POC BUN 22 POC Creatinine 0.8 POC Glucose 199 H Departure - Departure Disposition: [facility] Acute Clinical Impression: Severe sepsis Urinary tract infection Qualifiers: Urinary tract infection type: site unspecified Hematuria presence: without hematuria Qualified Code(s): N39.0 - Urinary tract infection, site not specified Condition: Fair
[2018-02-08 10:53] LABS: PLATELET COUNT 379 10^3/uL (150-400)
[2018-02-08 11:00] LABS: INR 0.99 (0.83-1.16); PROTIME(PATIENT) 13.3 SEC (12.0-15.0)
[2018-02-08] MEDS ORDERED: NS 1,400 ML IV ONE (11:15)
--- NOTE | 2018-02-08 11:32 | CPEKG ---
Heart Rate: 87 RR Interval: 690 P-R Interval: 154 QRSD Interval: 84 QT Interval: 396 QTC Interval: 477 P Searchlight: 0 QRS Searchlight: -3 T Wave Searchlight: 68 EKG Severity - ABNORMAL ECG - EKG Impression: UNKNOWN RHYTHM, IRREGULAR RATE 69-107 EKG Impression: RIGHT ATRIAL ABNORMALITY EKG Impression: CONSIDER ANTEROSEPTAL INFARCT Electronically Signed By: Ed Lopez 08-Feb-2018 11:33:08
[2018-02-08] MEDS ORDERED: ONDANSETRON 4 MG/2 ML VIAL IVP PRN (12:47)
[2018-02-08] MEDS ORDERED: ONDANSETRON DISINTEGRATING 4 MG TAB PO PRN (12:47)
[2018-02-08] MEDS ORDERED: ACETAMINOPHEN 325 MG TAB PO PRN (12:47)
[2018-02-08] MEDS ORDERED: NS 1,000 ML IV SCH (13:00)
--- NOTE | 2018-02-08 14:26 | PDGENHP ---
History and Physical - Chief Complaint Acute encephalopathy - History of Present Illness Primary care provider: Monika Primary neurologist: Dr. Deep Ireland HPI: 82-year-old female presents with acute encephalopathy characterized as minimally responsive on evaluation by a staff member at [facility] with onset of symptoms on the morning of presentation. She was reportedly found down, with associated stool incontinence, lethargy, in her apartment at [facility]. The duration of her encephalopathy has been persistent since it was discovered this morning, and persists during my evaluation of the patient. The patient is unable to otherwise provide any additional history, and her daughter who accompanies her has dementia of her own and is unable to provide any additional history. Is unclear whether patient has been taking any of her home medications and is unclear whether patient has been experiencing any infectious symptoms. History Information - Allergies/Home Medication List Allergies/Adverse Reactions: No Known Drug Allergies Allergy (Verified 02/08/18 10:43) NKDA Allergy (Unknown, Uncoded 10/20/17 13:09) Home Medications: Aspirin EC [Aspirin EC 81 mg (*)] 81 mg PO DAILY 10/27/17 [Last Taken 10/27/17] Atorvastatin Calcium [Lipitor 10 mg (*)] 10 mg PO HS 10/27/17 [Last Taken ] Duloxetine HCl [Cymbalta] 40 mg PO DAILY 10/27/17 [Last Taken 10/27/17] Levothyroxine [Synthroid 50 mcg (*)] 50 mcg PO DAILY06 10/27/17 [Last Taken 07/06] I have personally reviewed and updated: family history, medical history, social history, surgical history - Past Medical History CVA (Multifocal with hemorrhagic conversion, residual ataxia, right evelia paresis , cognitive impairment) Additional medical history: Depression. Chronic pain with sciatica. Hypertension. Chronic urinary retention. Chronic kidney disease stage 3. Recurrent urinary tract infection with E coli and Proteus. Cataracts. Hyperlipidemia - Surgical History Reports: no pertinent surgical hx - Family History Additional family history: Her daughter has vascular dementia - Social History Smoking Status: Never smoked Alcohol Use: None Drug Use: None Additional social history: Patient has previously been at [facility] but has transition back to [facility] over the past couple months Review of Systems Review of Systems: ROS: 10pt was reviewed & negative except for what was stated in HPI & below Gastrointestinal: Reports: other (Stool incontinence) Neurological: Reports: other (Lethargy, poor responsiveness) Physical Exam Physical Exam: Temp Pulse Resp BP Pulse Ox 36.7 C 87 18 194/105 H 98 02/08/18 13:38 02/08/18 13:38 02/08/18 13:38 02/08/18 13:38 02/08/18 13:38 O2 (L/minute) 2 Constitutional: no apparent distress, not in pain, chronically ill appearing, cachectic, No uncomfortable Eyes: PERRL, anicteric sclera, EOMI Ears, Nose, Mouth, Throat: moist mucous membranes, hearing normal, ears appear normal, no oral mucosal ulcers Cardiovascular: regular rate and rhythym, systolic murmur (1/6 systolic at it sternum), No irregularly irregular, No tachycardia, No edema Respiratory: no respiratory distress, no rales or rhonchi, clear to auscultation , reduced air movement (Poor inspiratory effort) Gastrointestinal: normoactive bowel sounds, soft, non-tender abdomen, no palpable masses, No distension Skin: other (Scattered ecchymoses) Musculoskeletal: other (Proximal muscle wasting, visible clavicles and temporal muscle wasting) Neurologic: sensation intact bilaterally, other (Alert awake oriented times person only), No weakness (Motor strength 5/5 bilateral upper extremities), No facial droop Psychiatric: not anxious, encephalopathic, flat affect, poor insight, poor judgement, poor memory, other (Responsive to tactile and verbal stimuli, able to follow some 1 step commands), No agitated Lab Data & Imaging Review 02/08/18 10:45 02/08/18 10:45 WBC 11.57 10^3/uL (3.80-9.50) H 02/08/18 10:45 RBC 4.67 10^6/uL (4.18-5.33) 02/08/18 10:45 Hgb 14.3 g/dL (12.6-16.3) 02/08/18 10:45 POC Hgb 15.0 gm/dL (12.6-16.3) 02/08/18 10:44 Hct 44.0 % (38.0-47.0) 02/08/18 10:45 POC Hct 44 % (38-47) 02/08/18 10:44 MCV 94.2 fL (81.5-99.8) 02/08/18 10:45 MCH 30.6 pg (27.9-34.1) 02/08/18 10:45 MCHC 32.5 g/dL (32.4-36.7) 02/08/18 10:45 RDW 13.0 % (11.5-15.2) 02/08/18 10:45 Plt Count 379 10^3/uL (150-400) 02/08/18 10:45 MPV 8.9 fL (8.7-11.7) 02/08/18 10:45 Neut % (Auto) 80.9 % (39.3-74.2) H 02/08/18 10:45 Lymph % (Auto) 11.8 % (15.0-45.0) L 02/08/18 10:45 [place] % (Auto) 5.3 % (4.5-13.0) 02/08/18 10:45 Eos % (Auto) 0.3 % (0.6-7.6) L 02/08/18 10:45 Baso % (Auto) 0.3 % (0.3-1.7) 02/08/18 10:45 Nucleat RBC Rel Count 0.0 % (0.0-0.2) 02/08/18 10:45 Absolute Neuts (auto) 9.35 10^3/uL (1.70-6.50) H 02/08/18 10:45 Absolute Lymphs (auto) 1.37 10^3/uL (1.00-3.00) 02/08/18 10:45 Absolute Monos (auto) 0.61 10^3/uL (0.30-0.80) 02/08/18 10:45 Absolute Eos (auto) 0.04 10^3/uL (0.03-0.40) 02/08/18 10:45 Absolute Basos (auto) 0.04 10^3/uL (0.02-0.10) 02/08/18 10:45 Absolute Nucleated RBC 0.00 10^3/uL (0-0.01) 02/08/18 10:45 Immature Gran % 1.4 % (0.0-1.1) H 02/08/18 10:45 Immature Gran # 0.16 10^3/uL (0.00-0.10) H 02/08/18 10:45 PT 13.3 SEC (12.0-15.0) 02/08/18 10:45 INR 0.99 (0.83-1.16) 02/08/18 10:45 APTT 25.2 SEC (23.0-38.0) 02/08/18 10:45 VBG Lactic Acid 2.8 mmol/L (0.7-2.1) H 02/08/18 12:31 POC Sodium 141 mEq/L (135-145) 02/08/18 10:44 Sodium 144 mEq/L (135-145) 02/08/18 10:45 POC Potassium 4.0 mEq/L (3.3-5.0) 02/08/18 10:44 Potassium 4.1 mEq/L (3.5-5.2) 02/08/18 10:45 POC Chloride 109 mEq/L (97-110) 02/08/18 10:44 Chloride 103 mEq/L (97-110) 02/08/18 10:45 Carbon Dioxide 24 mEq/l (22-31) 02/08/18 10:45 Anion Gap 17 mEq/L (8-16) H 02/08/18 10:45 POC BUN 22 mg/dL (7-23) 02/08/18 10:44 BUN 22 mg/dL (7-23) 02/08/18 10:45 Creatinine 0.7 mg/dL (0.6-1.0) 02/08/18 10:45 POC Creatinine 0.8 mg/dL (0.6-1.0) 02/08/18 10:44 Estimated GFR > 60 02/08/18 10:45 Glucose 194 mg/dL (70-100) H 02/08/18 10:45 POC Glucose 199 mg/dL (70-100) H 02/08/18 10:44 Calcium 9.1 mg/dL (8.5-10.4) 02/08/18 10:45 Total Bilirubin 0.6 mg/dL (0.1-1.4) 02/08/18 10:45 Troponin I 0.024 ng/mL (0.000-0.034) 02/08/18 10:45 Urine Color YELLOW 02/08/18 11:45 Urine Appearance HAZY 02/08/18 11:45 Urine pH 6.0 (5.0-7.5) 02/08/18 11:45 Ur Specific [place] 1.012 (1.002-1.030) 02/08/18 11:45 Urine Protein 1+ (NEGATIVE) H 02/08/18 11:45 Urine Ketones NEGATIVE (NEGATIVE) 02/08/18 11:45 Urine Blood 1+ (NEGATIVE) H 02/08/18 11:45 Urine Nitrate NEGATIVE (NEGATIVE) 02/08/18 11:45 Urine Bilirubin NEGATIVE (NEGATIVE) 02/08/18 11:45 Urine Urobilinogen NEGATIVE EU (0.2-1.0) 02/08/18 11:45 Ur Leukocyte Esterase 3+ (NEGATIVE) H 02/08/18 11:45 Urine RBC 5-10 /hpf (0-3) H 02/08/18 11:45 Urine WBC 50-182 /hpf (0-3) H 02/08/18 11:45 Ur Epithelial Cells NONE SEEN /lpf (NONE-1+) 02/08/18 11:45 Urine Mucus TRACE /lpf (NONE-1+) 02/08/18 11:45 Urine Glucose NEGATIVE (NEGATIVE) 02/08/18 11:45 Visualized and Interpreted Chest x-ray results: Yes Chest X-Ray results: no infiltrate Visualized and Interpreted EKG results: Yes EKG Interpretation: Positive for: other (Sinus mechanism with possible development of atrial fibrillation, Q-wave in lead 3) Assessment & Plan Assessment: 82-year-old female presents with acute on chronic encephalopathy secondary to toxic effects of suspected urinary tract infection, and metabolic effects of acute metabolic acidosis Plan: 1. Acute on chronic encephalopathy. Evidenced by global brain dysfunction characterized as increased disorientation, increased somnolence, poor responsiveness, for level of interaction, all of which are acute changes from her baseline, which is able to perform activities of daily living at [facility] and is oriented x2, most likely secondary to a combination of the toxic effects of infection as well as metabolic effects of acidosis -continue supportive care, at bedtime melatonin -treat underlying conditions -fall risk -reviewed outside records including 11/05/[address] Emanuel Jolley, he reports that the patient was able to transition from inpatient rehab to long-term facility but did require assistance with ADLs -get physical and occupational therapy as well as cog eval, to determine whether patient is safe to return to [facility] verses transition to long-term facility after stabilization of her other issues 2. Acute metabolic acidosis. Secondary to lactic acid, likely secondary to underlying infection resultant hypovolemia the setting of poor oral intake -continue to trend lactic acid level until clears, continue on normal saline 150 an hour, currently hemodynamically stable 3. Suspected urinary tract infection. Acute, new problem this provider, further workup indicated. Recurrent, review of outside records from 01/26/2018 demonstrates Proteus organism resistant to doxycycline and Macrobid, is unclear which antibiotic the patient received at that time, as her daughter has dementia and is unable to provide us with that information -continue IV ceftriaxone and IV fluids -urine culture and blood culture sent -get respiratory viral panel to ensure no concomitant infection 4. History of CVA. Patient has physical impairments at baseline clearing ataxia and right hemiparesis, continue therapy evaluations determine whether long-term facility would be the most appropriate level of care for the patient 5. Chronic urinary retention, continue on bethanechol, if concerns arise, bladder scan and potentially straight catheterization 6. CKD stage III. Cont to monitor 7. HTN. Chronic, patient not taking home Rx, will give IV hydralazine PRN SBP > 180 given hx of ICH Diet. NPO until swallow eval performed Prophylaxis. High risk patient, Lovenox 40 Code. Do not resuscitate per review of previous records Disposition. Anticipated discharge is uncertain this time, anticipated length stay is greater than 48 hr for reasonable medical necessity including acute on chronic encephalopathy rendering patient unable to safely complete activities of daily living with high risk comorbid acute metabolic acidosis urinary tract infection. I have discussed patient's presentation with Bharti Vogt, hospitalist provider, she has assigned the patient to me for evaluation.
[2018-02-08] MEDS: hydrALAZINE 20 MG/ML VIAL IVP PRN (15:26)
[2018-02-08] MEDS: ENOXAPARIN 30 MG/0.3 ML SYR SC SCH (15:26)
[2018-02-08] MEDS ORDERED: PROMETHAZINE HCL 25 MG TAB PO PRN (15:27)
[2018-02-08] MEDS ORDERED: PROMETHAZINE HCL 25 MG/ML INJ IVP PRN (15:27)
[2018-02-08] MEDS ORDERED: LOPERAMIDE HCL 2 MG CAP PO PRN (15:27)
[2018-02-08] MEDS ORDERED: LABETALOL HCL 5 MG/ML 20 ML MDV IVP ONE (20:35)
[2018-02-08] MEDS: ATORVASTATIN CALCIUM 10 MG TAB PO SCH (20:45)
[2018-02-08] MEDS: LISINOPRIL 5 MG TAB PO SCH (20:45)
[2018-02-08] MEDS: BETHANECHOL 25 MG TAB PO SCH (21:15)
[2018-02-09] MEDS: hydrALAZINE 20 MG/ML VIAL IVP PRN (04:02)
[2018-02-09 05:36] LABS: PLATELET COUNT 320 10^3/uL (150-400)
[2018-02-09] MEDS: LEVOTHYROXINE 50 MCG TAB PO SCH (05:36)
[2018-02-09] MEDS: LISINOPRIL 5 MG TAB PO SCH ×2 (09:16→21:40)
[2018-02-09] MEDS: ENOXAPARIN 30 MG/0.3 ML SYR SC SCH (09:16)
[2018-02-09] MEDS: BETHANECHOL 25 MG TAB PO SCH ×3 (09:16→21:40)
[2018-02-09] MEDS: DULoxetine 20 MG CAP PO SCH (09:16)
[2018-02-09] MEDS: ASPIRIN EC 81 MG TAB PO SCH (09:16)
--- NOTE | 2018-02-09 09:18 | PDMN ---
Medical Necessity Medical necessity: M300 UTI- A-2 days: AMS that is severe/persistent, pt. is unable to safely complete ADL, high risk cormorbid acute metabolic acidosis, in pt with hx of CVA, chronic urinary retention, CKD stage III, HTN, pt will be NPO pending swallow eval, IV abx, fluids, apresoline, PT,OT, RA sats 88% 100 %@ 2-3 L., further monitoring , eval and tx needed anticipate > 2 midnights.
--- NOTE | 2018-02-09 09:39 | ASMTCASEMG ---
Living Arrangements What is your living Answers: Alone arrangement? Who do you live with? Type Of Residence What kind of residence do Answers: Long Term you live in? Type of Residence Facility Name Notes: [facility] Discharge Plan Comments Coordination Status Comments Notes: Pt is a 82 y/o female admitted for sepsis and a UTI. Pt was recently at [facility] inpatient rehab and [facility] rehab. Pt and her daughter both have dementia. Therapies have been ordered and awaiting recommendations. Needs are TBD at this time. CM to follow. Plan: TBD Date Signed: 02/09/2018 09:38 AM Electronically Signed By:IRAJ Enamorado
--- NOTE | 2018-02-09 13:07 | HOSPPROG ---
Hospitalist Progress Note Assessment/Plan: 82-year-old female presents with acute on chronic encephalopathy likely related to suspected urinary tract infection and dehydration. *Acute on chronic encephalopathy -continue supportive care, at bedtime melatonin -treat underlying conditions -fall risk -her friend is at the bedside and said the patient is at her baseline -suspect she was very dehydrated *Acute metabolic acidosis -improved w hydration *hypokalemia -added protocol * Suspected urinary tract infection - outside records from 01/26/2018 demonstrates Proteus organism resistant to doxycycline and Macrobid -continue IV ceftriaxone -lab didn't have enough urine to do culture -on Ceftriaxone -respiratory viral panel is negative -patient has underlying chronic urinary retention (on bethanechol) -blood cx are pending * History of CVA. Patient has physical impairments at baseline clearing ataxia and right hemiparesis, continue therapy evaluations determine whether nursing home facility would be the most appropriate level of care for the patient *CKD stage III *HTN -added norvasc *underweight w a BMI of 16 Disposition. She lives at [facility] and per her friend she is essentially wheelchair bound. Will dc fluids, appreciate ST seeing the patient. Subjective: Iman says she is fine and has no pain. Objective: Vital Signs Temp Pulse Resp BP Pulse Ox 36.8 C 88 16 188/96 H 98 02/09/18 11:26 02/09/18 11:26 02/09/18 11:26 02/09/18 11:26 02/09/18 11:26 Microbiology 02/08/18 15:35 Respiratory Panel (PCR) - Final Nasal, Sinus - Anaerobic Tube/Swab No Organism Detected Laboratory Results 02/09/18 04:33 02/09/18 04:33 02/08/18 02/09/18 02/10/18 05:59 05:59 05:59 Intake Total 8088 0 Output Total 300 Balance 8088 -300 PT 13.3 SEC (12.0-15.0) 02/08/18 10:45 INR 0.99 (0.83-1.16) 02/08/18 10:45 - Physical Exam Constitutional: no apparent distress, chronically ill appearing, cachectic Eyes: PERRL Ears, Nose, Mouth, Throat: hard of hearing Cardiovascular: regular rate and rhythym, tachycardia Respiratory: no respiratory distress Gastrointestinal: normoactive bowel sounds, soft, non-tender abdomen Skin: warm Neurologic: other (alert ) Psychiatric: interacting appropriately, poor memory (not oriented to place, time or situation but to herself and her friend) ICD10 Worksheet Patient Problems: Problems Problem Status Onset Severe sepsis Acute Urinary tract infection Acute HTN (hypertension) Acute Hemorrhagic stroke Acute
[2018-02-09] MEDS ORDERED: PROTOCOL POTASSIUM 1 DOSE MISC PRN (13:51)
[2018-02-09] MEDS ORDERED: POTASSIUM CL 10 MEQ TAB PO ONE (21:19)
[2018-02-09] MEDS: ATORVASTATIN CALCIUM 10 MG TAB PO SCH (21:40)
[2018-02-10] MEDS: LEVOTHYROXINE 50 MCG TAB PO SCH (06:04)
[2018-02-10] MEDS ORDERED: POTASSIUM CL 10 MEQ TAB PO ONE (08:21)
[2018-02-10] MEDS: BETHANECHOL 25 MG TAB PO SCH ×3 (08:33→21:54)
[2018-02-10] MEDS: DULoxetine 20 MG CAP PO SCH (08:34)
[2018-02-10] MEDS: ENOXAPARIN 30 MG/0.3 ML SYR SC SCH (08:34)
[2018-02-10] MEDS: LISINOPRIL 5 MG TAB PO SCH ×2 (08:34→21:54)
[2018-02-10] MEDS: ASPIRIN EC 81 MG TAB PO SCH (08:34)
[2018-02-10] MEDS: hydrALAZINE 20 MG/ML VIAL IVP PRN (08:45)
--- NOTE | 2018-02-10 12:48 | HOSPPROG ---
Hospitalist Progress Note Assessment/Plan: 82-year-old female presents with acute on chronic encephalopathy likely related to suspected urinary tract infection and dehydration. First encounter, chart reviewed. D/W CM and RN. *Acute on chronic encephalopathy -continue supportive care, at bedtime melatonin -treat underlying conditions -fall risk -likely at baseline -suspect she was very dehydrated *Acute metabolic acidosis -improved w hydration *hypokalemia -added protocol * Suspected urinary tract infection -outside records from 01/26/2018 demonstrates Proteus organism resistant to doxycycline and Macrobid -continue IV ceftriaxone -lab didn't have enough urine to do culture -on Ceftriaxone -respiratory viral panel is negative -patient has underlying chronic urinary retention (on bethanechol) -blood cx NGTD * History of CVA. - Patient has physical impairments at baseline clearing ataxia and right hemiparesis, - continue therapy evaluations determine whether [place] [facility] facility would be the most appropriate level of care for the patient *CKD stage III *HTN -increased norvasc -hydralazine prn *underweight w a BMI of 16 * Disposition. - She lives at [facility] and per her friend she is essentially wheelchair bound. - Will dc fluids, appreciate ST seeing the patient. Subjective: Feeling tired. Didn't sleep well. No pain. Eating. Objective: Vital Signs Temp Pulse Resp BP Pulse Ox 36.8 C 105 H 18 173/87 H 94 02/10/18 11:11 02/10/18 11:11 02/10/18 11:11 02/10/18 11:11 02/10/18 11:11 Laboratory Results 02/09/18 04:33 02/10/18 04:30 02/09/18 02/10/18 02/11/18 05:59 05:59 05:59 Intake Total 8088 350 Output Total 1504 175 Balance 8088 -1154 -175 PT 13.3 SEC (12.0-15.0) 02/08/18 10:45 INR 0.99 (0.83-1.16) 02/08/18 10:45 - Physical Exam Constitutional: appears nourished, not in pain, chronically ill appearing Eyes: PERRL, anicteric sclera, EOMI Ears, Nose, Mouth, Throat: moist mucous membranes, hearing normal, ears appear normal Cardiovascular: No JVD, No tachycardia, No edema Respiratory: no respiratory distress, no rales or rhonchi, reduced air movement Gastrointestinal: No tenderness, No ascites, No guarding Skin: warm, normal color, No mottled Musculoskeletal: normal joint ROM, no joint effusions, generalized weakness Neurologic: No AAOx3 Psychiatric: not anxious, poor insight, poor judgement, poor memory ICD10 Worksheet Patient Problems: Problems Problem Status Onset Hemorrhagic stroke Acute HTN (hypertension) Acute Severe sepsis Acute Urinary tract infection Acute
--- NOTE | 2018-02-10 13:53 | ASMTCMCOM ---
CM Note CM Note Notes: CM spoke w/ Bell, CATALINA on the phone. CM went over the recommendations that PT has. Bell reports that she will need a full day tomorrow to speak w/ her family about d/c plans. Pt is currently in [place] and there is a 9 hour difference. CM spoke w/ Lillie and Itzel, acting CATALINA should anything happen to pt while Bell is out of the country regarding d/c POC. CM to follow. Plan: TBD Date Signed: 02/10/2018 01:52 PM Electronically Signed By:IRAJ Enamorado
[2018-02-10] MEDS: ATORVASTATIN CALCIUM 10 MG TAB PO SCH (21:54)
[2018-02-10] MEDS: MELATONIN 3 MG TAB PO SCH (21:54)
[2018-02-11] MEDS: LEVOTHYROXINE 50 MCG TAB PO SCH (05:47)
[2018-02-11] MEDS: LISINOPRIL 5 MG TAB PO SCH ×2 (10:52→21:32)
[2018-02-11] MEDS: amLODIPine BESYLATE 5 MG TAB PO SCH (10:52)
[2018-02-11] MEDS: BETHANECHOL 25 MG TAB PO SCH ×3 (10:52→21:31)
[2018-02-11] MEDS: ASPIRIN EC 81 MG TAB PO SCH (10:52)
[2018-02-11] MEDS: DULoxetine 20 MG CAP PO SCH (10:52)
[2018-02-11] MEDS: ENOXAPARIN 30 MG/0.3 ML SYR SC SCH (10:53)
--- NOTE | 2018-02-11 12:31 | HOSPPROG ---
Hospitalist Progress Note Assessment/Plan: 82-year-old female presents with acute on chronic encephalopathy likely related to suspected urinary tract infection and dehydration. *Acute on chronic encephalopathy -continue supportive care, at bedtime melatonin -treat underlying conditions -fall risk -likely at baseline -suspect she was very dehydrated *Acute metabolic acidosis -improved w hydration *hypokalemia -resolved * Suspected urinary tract infection -outside records from 01/26/2018 demonstrates Proteus organism resistant to doxycycline and Macrobid -lab didn't have enough urine to do culture -DC Ceftriaxone, treated -respiratory viral panel is negative -patient has underlying chronic urinary retention (on bethanechol) -blood cx NGTD * History of CVA. - Patient has physical impairments at baseline clearing ataxia and right hemiparesis, - continue therapy evaluations determine whether [place] [facility] [place] would be the most appropriate level of care for the patient *CKD stage III *HTN -increased norvasc -hydralazine prn *underweight w a BMI of 16 * Disposition. - She lives at [facility] and per her friend she is essentially wheelchair bound. - Will dc fluids, appreciate ST seeing the patient. -plan for SNF -CM trying to discuss with daughter Subjective: Very tired today. Not eating well. No pain. Objective: Vital Signs Temp Pulse Resp BP Pulse Ox 36.8 C 74 12 133/62 H 96 02/11/18 11:05 02/11/18 11:05 02/11/18 11:05 02/11/18 11:05 02/11/18 11:05 Laboratory Results 02/09/18 04:33 02/10/18 04:30 02/10/18 02/11/18 02/12/18 05:59 05:59 05:59 Intake Total 350 1310 150 Output Total 1504 179 Balance -1154 1131 150 PT 13.3 SEC (12.0-15.0) 02/08/18 10:45 INR 0.99 (0.83-1.16) 02/08/18 10:45 - Physical Exam Constitutional: not in pain, chronically ill appearing, cachectic Eyes: PERRL, anicteric sclera, EOMI Ears, Nose, Mouth, Throat: moist mucous membranes, hearing normal, ears appear normal Cardiovascular: No JVD, No tachycardia, No edema Respiratory: no respiratory distress, no rales or rhonchi, clear to auscultation Gastrointestinal: normoactive bowel sounds, No tenderness, No ascites Skin: warm, normal color, No mottled Musculoskeletal: no joint effusions, muscular tenderness, generalized weakness Psychiatric: not anxious, poor insight, poor judgement, poor memory ICD10 Worksheet Patient Problems: Problems Problem Status Onset Hemorrhagic stroke Acute HTN (hypertension) Acute Severe sepsis Acute Urinary tract infection Acute
--- NOTE | 2018-02-11 15:26 | ASMTCMCOM ---
CM Note CM Note Notes: Pt lives at [facility], she has dementia at baseline. Pt receives care through [facility] and a private pay caregiver. The pt's daughter Whit is out of the country right now in [place] but she did communicate today via email. She declines SNF for her mother, feels it's best for her to return home supervision that she will set up. CM to arrange home health with [facility] (RN/PT/OT/BUSINESS SYSTEMS ADMINISTRATOR), Shana notified. Patient will likely discharge tomorrow if everything in place. DC Plan: [facility] + [facility] (RN/PT/OT/BUSINESS SYSTEMS ADMINISTRATOR) Date Signed: 02/11/2018 03:25 PM Electronically Signed By:Cassi Chaudhry RN
[2018-02-11] MEDS: MELATONIN 3 MG TAB PO SCH (21:31)
[2018-02-11] MEDS: ATORVASTATIN CALCIUM 10 MG TAB PO SCH (21:31)
[2018-02-12] MEDS: LEVOTHYROXINE 50 MCG TAB PO SCH (05:20)
--- NOTE | 2018-02-12 08:40 | HOSPPROG ---
Hospitalist Progress Note Assessment/Plan: 82-year-old female presents with acute on chronic encephalopathy likely related to suspected urinary tract infection and dehydration. *Acute on chronic encephalopathy -resolved, multifactorial *Acute metabolic acidosis -improved w hydration *hypokalemia -resolved * Suspected urinary tract infection -outside records from 01/26/2018 demonstrates Proteus organism resistant to doxycycline and Macrobid -lab didn't have enough urine to do culture -DC Ceftriaxone, treated -respiratory viral panel is negative -patient has underlying chronic urinary retention (on bethanechol) -blood cx NGTD * History of CVA. - Patient has physical impairments at baseline clearing ataxia and right hemiparesis, - continue therapy evaluations determine whether nursing home facility would be the most appropriate level of care for the patient *CKD stage III *HTN -increased norvasc + lisinopril -hydralazine prn *underweight w a BMI of 16 * Disposition. - She lives at [facility] and per her friend she is essentially wheelchair bound. - reviewed CM notes and the daughter would like her to return to with 24 hour care Subjective: Priscilla has no complaints. Objective: Vital Signs Temp Pulse Resp BP Pulse Ox 37.1 C 71 16 143/66 H 92 02/12/18 06:19 02/12/18 06:19 02/12/18 06:19 02/12/18 06:19 02/12/18 06:19 Laboratory Results 02/09/18 04:33 02/10/18 04:30 02/11/18 02/12/18 02/13/18 05:59 05:59 05:59 Intake Total 1310 650 Output Total 179 4 Balance 1131 646 PT 13.3 SEC (12.0-15.0) 02/08/18 10:45 INR 0.99 (0.83-1.16) 02/08/18 10:45 - Physical Exam Constitutional: no apparent distress, other (thin) Eyes: PERRL Ears, Nose, Mouth, Throat: hard of hearing Respiratory: no respiratory distress Skin: warm Musculoskeletal: generalized weakness Psychiatric: interacting appropriately, not anxious, poor memory ICD10 Worksheet Patient Problems: Problems Problem Status Onset Severe sepsis Acute Urinary tract infection Acute HTN (hypertension) Acute Hemorrhagic stroke Acute
--- NOTE | 2018-02-12 10:57 | ASMTCMCOM ---
ZITA Note ZITA Note Notes: Communicating with pt's dtr Bell via email, she advised that the person to coordinate with is Rebekah [phone]. CM spoke w/Rebekah, she has 11/[address], she has 2 privately paid caregivers and 2 caregivers through [facility]. ZITA set up home health with [facility], they will contact Rebekah for scheduling. Dtr's email: Rebekah to picking table worker pt at 4pm Date Signed: 02/12/2018 10:56 AM Electronically Signed By:Cassi Chaudhry RN
--- NOTE | 2018-02-12 10:59 | ASMTLACE ---
LING Length of stay for Answers: 4-6 days current admission Acuity / Level of Answers: Yes Care: Did the patient have an inpatient admission? Comorbidities - select Answers: Cerebrovascular disease all that apply (CVA, TIA, aneurysms, vasc ular dementia) Dementia Opioid dependence / Chronic pain Other Notes: HTN, CKD stage 3 # of Emergency department Answers: 3-4 visits in the last 6 months Social determinants Answers: Mental health diagnosis (anxiety, depression, pers onality disorders, etc.) Score: 22 Date Signed: 02/12/2018 10:58 AM Electronically Signed By:Cassi Chaudhry RN
[2018-02-12] MEDS: LISINOPRIL 5 MG TAB PO SCH (11:48)
[2018-02-12] MEDS: BETHANECHOL 25 MG TAB PO SCH (11:50)
[2018-02-12] MEDS: ASPIRIN EC 81 MG TAB PO SCH (11:50)
[2018-02-12] MEDS: ENOXAPARIN 30 MG/0.3 ML SYR SC SCH (11:50)
[2018-02-12] MEDS: amLODIPine BESYLATE 5 MG TAB PO SCH (11:50)
[2018-02-12] MEDS: DULoxetine 20 MG CAP PO SCH (11:50)
[2018-02-12 11:52] VITALS: BP 159/61
--- NOTE | 2018-02-12 11:59 | PDIAF ---
- Diagnosis Diagnosis: acute encephalopathy, htn, uti Code Status: Do Not Resuscitate - Medication Management Discharge Medications: Medications to Continue on Transfer Aspirin EC [Aspirin EC 81 mg (*)] 81 mg PO DAILY 10/27/17 [Last Taken 02/08/18] Atorvastatin Calcium [Lipitor 10 mg (*)] 10 mg PO HS 10/27/17 [Last Taken ] Duloxetine HCl [Cymbalta] 20 mg PO DAILY 10/27/17 [Last Taken 02/07/18] Levothyroxine [Synthroid 50 mcg (*)] 50 mcg PO DAILY06 10/27/17 [Last Taken ] Bethanechol [Urecholine (*)] 25 mg PO TID 02/08/18 [Last Taken 02/08/18] Acetaminophen [Tylenol 325mg (*)] 650 mg PO Q4HRS PRN tab 02/12/18 [Last Taken Unknown] Lisinopril [Zestril 5 mg (*)] 5 mg PO BID #40 tab 02/12/18 [Last Taken Unknown] amLODIPine BESYLATE [Norvasc 5 mg (*)] 5 mg PO DAILY #30 tab 02/12/18 [Last Taken Unknown] Discharge Medications: Refer to the Discharge Home Medication list for PRN reason. PICC Care - Routine: N/A - Orders Services needed: Home Care, Registered Nurse, Physical Therapy, Occupational Therapy, Speech Language Pathologist Home Care Face to Face: I certify that this patient was under my care and that I had the required [id number] encounter meeting the encounter requirements on the discharge day. My findings support the fact that the patient is homebound as defined in Home Care Face to Face Continued: CMS Chapter 7 Medicare Benefits Manual 30.1.1 , The condition of the patient is such that there exists a normal inability to leave home and consequently, leaving home would require a considerable and taxing effort. Diet Recommendation: no restrictions on diet Diet Texture: Dysphagia 2 - Mechanically Altered - Chopped, Ground, Thin Liquids , Meds Whole w/Liquids Additional Instructions: patient has had high blood pressure during her stay, started on norvasc and lisinopril. please monitor bp closely. - Follow Up Care Current Providers and Referrals: Patient,NotPresent [Unknown] - As per Instructions
--- NOTE | 2018-02-12 12:54 | GDS ---
[f rep st] DISCHARGE SUMMARY DISCHARGE DIAGNOSES: 1. Acute on chronic encephalopathy. 2. Acute metabolic acidosis. 3. Hypokalemia. 4. Suspected urinary tract infection. 5. History of cerebrovascular accident. 6. Chronic kidney disease. 7. Hypertension. HISTORY: Briefly, the patient is an 82-year-old female. She presented to the emergency room with ac kimberley encephalopathy. The suspicion was that it was related to a urinary tract infection, as well as d ehydration. Once she was given IV fluids and treated for a urinary tract infection, she improved mar kedly. The plan is for her to be discharged to [facility] per the family's request. She will get 2 4-hour care. HOSPITAL COURSE: 1. Acute on chronic encephalopathy. This is resolved. A CT scan of her head showed nothing acute. 2. Acute metabolic acidosis, resolved. 3. Hypokalemia, resolved. 4. Urinary tract infection was treated with ceftriaxone. Blood culture showed no growth to date. 5. History of CVA. She has impairments at baseline, including ataxia and right hemiparesis. She wo uld do best at a retirement facility with the family's request for her to be home. 6. Chronic kidney disease; this is stage 3. 7. Hypertension. She is on Norvasc and lisinopril. These are both new medications. 8. Underweight. She has a BMI of 16. DISCHARGE CONDITION: Stable. Blood pressure is 159/61, heart rate 82, respiratory rate 14, O2 satur ation on room air 94%, temperature 37.1 Celsius. DISCHARGE MEDICATIONS: Please see the EMR. DISCHARGE INSTRUCTIONS: 1. To follow up with her PCP. 2. Recommending that she get 24-hour care and that nursing monitor her response to her blood pressur e medications. 3. If she develops fever, chills, chest pain, or shortness of breath, the family would like further care. Return to the emergency room. Greater than 30 minutes discharging and coordinating the patient's care. /[id number]/MODL
--- NOTE | 2018-02-12 16:52 | ASDISCHSUM ---
Discharge Information Plan Status:Home with Home Health Medically Cleared to Leave: Discharge Date:02/12/2018 04:10 PM CM D/C Disposition:Home Health Service ADT D/C Disposition:Home Health Service Projected Discharge Date:02/12/2018 04:00 PM Transportation at D/C:Family Discharge Delay Reason: Follow-Up Date:02/12/2018 04:00 PM Discharge Slot: Final Diagnosis: Placement Information Referral Type:*Home Health Care Services Referral ID:[id number] Provider Name:Replaced By [facility] Address 1:[address] [place] [address] Address 2: City:[place] Selection Factors: State:[place] Patient Contact Information Contact Name:MAGED Relationship:Daughter Address:[address] Work Phone: [facility]:[place] Alternate Phone: [facility]/Zip Code:[place] [address] Email: Financial Information Financial Class:Medicare Advantage Plans Primary Plan Desc:[facility] [place] Primary Plan Number:[id number] Secondary Plan Desc: Secondary Plan Number: Assessment Information LACE LACE Length of stay for Answers: 4-6 days current admission Acuity / Level of Answers: Yes Care: Did the patient have an inpatient admission? Comorbidities - select Answers: Cerebrovascular disease all that apply (CVA, TIA, aneurysms, vasc ular dementia) Dementia Opioid dependence / Chronic pain Other Notes: HTN, CKD stage 3 # of Emergency department Answers: 3-4 visits in the last 6 months Social determinants Answers: Mental health diagnosis (anxiety, depression, pers onality disorders, etc.) Score: 22 Date Signed: 02/12/2018 10:58 AM Electronically Signed By:Cassi Chaudhry RN [facility] Initial CM Assessment Living Arrangements What is your living Answers: Alone arrangement? Who do you live with? Type Of Residence What kind of residence do Answers: Group Home you live in? Type of Residence Facility Name Notes: [facility] Discharge Plan Comments Coordination Status Comments Notes: Pt is a 82 y/o female admitted for sepsis and a UTI. Pt was recently at [facility] inpatient rehab and [facility]. Pt and her daughter both have dementia. Therapies have been ordered and awaiting recommendations. Needs are TBD at this time. CM to follow. Plan: TBD Date Signed: 02/09/2018 09:38 AM Electronically Signed By:IRAJ Enamorado [facility] CM Progress Note CM Note CM Note Notes: CM spoke w/ CATALINA Luu on the phone. CM went over the recommendations that PT has. Bell reports that she will need a full day tomorrow to speak w/ her family about d/c plans. Pt is currently in [place] and there is a 9 hour difference. CM spoke w/ Gina, acting CATALINA should anything happen to pt while Bell is out of the country regarding d/c POC. CM to follow. Plan: TBD Date Signed: 02/10/2018 01:52 PM Electronically Signed By:IRAJ Enamorado [facility] CM Progress Note CM Note ZITA Note Notes: Pt lives at [facility], she has dementia at baseline. Pt receives care through [facility] and a private pay caregiver. The pt's daughter Whit is out of the country right now in [place] but she did communicate today via email. She declines SNF for her mother, feels it's best for her to return home w/11/05 supervision that she will set up. CM to arrange home health with [facility] (RN/PT/OT/STATION GATEMAN), Shana notified. Patient will likely discharge tomorrow if everything in place. DC Plan: [facility] + [facility] (RN/PT/OT/STATION GATEMAN) Date Signed: 02/11/2018 03:25 PM Electronically Signed By:Cassi Chaudhry RN [facility] CM Progress Note CM Note CM Note Notes: Communicating with pt's dtr Bell via email, she advised that the person to coordinate with is Rebekah [phone]. CM spoke w/Rebekah, she has 11/[address], she has 2 privately paid caregivers and 2 caregivers through [facility]. CM set up home health with [facility], they will contact Rebekah for scheduling. Dtr's email: [email or web address] Rebekah to hand picker pt at 4pm Date Signed: 02/12/2018 10:56 AM Electronically Signed By:Cassi Chaudhry RN Case Management Discharge Plan Note Case Management Discharge Discharge Order Complete? Answers: Yes Patient to Obtain Answers: Other Notes: Caregivers Medications Transportation Arranged Answers: Family/Friends Transport will Pick (Date 02/12/2018 04:00 PM & Time) Faxed Final Orders Answers: Yes Family Notified Answers: Yes Discharge Comments Notes: D/w TWISTER TENDER PAPER, final orders faxed. Diamante at [facility] notified, RN to call report. Date Signed: 02/12/2018 11:00 AM Electronically Signed By:Cassi Chaudhry RN Intervention Information
== END 2018-02-12 16:10 | disposition home health service (06) | DRG 689 ==
LOC: EDBD → EDUNIT# → OBSVTOIN 12:31 → F3E 13:27
PROVIDERS: ADMIT Internal Medicine; ATTEND Internal Medicine
DX: N39.0 Urinary tract infection, site not specified (principal); E86.0 Dehydration; G93.41 Metabolic encephalopathy; E87.2 Acidosis; E87.6 Hypokalemia; R33.9 Retention of urine, unspecified; I69.361 Other paralytic syndrome following cerebral infarction affecting right dominant side; I69.393 Ataxia following cerebral infarction; N18.3 Chronic kidney disease, stage 3 (moderate); I11.0 Hypertensive heart disease with heart failure; R63.6 Underweight; Z68.1 Body mass index [BMI] 19.9 or less, adult; F03.90 Unspecified dementia, unspecified severity, without behavioral disturbance, psychotic disturbance, mood disturbance, and anxiety; E03.9 Hypothyroidism, unspecified
CPT/HCPCS: 82947-QW; 84134-90; 92526-GN; 92610-GN; 97163-GP; 97166-GO; 97530-GP; G8978-GP-CM; G8979-GP-CL; G8987-GO-CM; G8988-GO-CM; G8989-GO-CM; G8996-GN-CI; G8997-GN-CH; G8998-GN-CI; J0360; J0696; J1650

== ENCOUNTER 2018-11-23 16:50 | Observation (INO) | payer OTHER ==
--- NOTE | 2018-11-23 16:45 | EDPHY ---
HPI/HX/ROS/PE/MDM Narrative: CHIEF COMPLAINT: Unresponsive. HISTORY OF PRESENT ILLNESS: This patient is an 83 year old female with history of CKD, CVA, hypertension, history of admission secondary to acute on chronic encephalopathy and UTI. Initially reported as 89 y/o female arriving emergently via EMS after staff found her unresponsive at [facility]. She was incontinent of stool and had vomited. Staff were unsure how long she had been unresponsive. EMS crews noted right-sided facial droop. The patient does have a [employer] MOST form present. She is DNR. Comfort treatment including oxygen, suction, manual treatment of airway obstruction, and artificial nutrition okay. Her family has been contacted. REVIEW OF SYSTEMS: Unable to obtain secondary to patient presentation. PAST MEDICAL HISTORY: CVA (resultant baseline impairments including ataxia and right-sided hemiparesis). Stage II chronic kidney disease. Hypertension. She is chronically underweight. SOCIAL HISTORY: Lives at [facility]. She has a [email or web address] form present. Family have been called and are en route to the hospital. VITAL SIGNS: Reviewed by me GENERAL: Very thin. Extremities cool to touch. She is responsive to verbal stimuli, but not following commands. HEENT: Atraumatic. Eyes: Pinpoint pupils bilaterally. No icterus, no injection. Mouth: Vomitus is present in the mouth. No erythema or lesions. Neck: supple with no adenopathy. LUNGS: Labored, wheezing respirations, particularly on the left. CARDIAC: Regular rate and rhythm. ABDOMEN: Soft, nondistended. BACK: No noted trauma. EXTREMITIES: No trauma. No edema. No motor tone in RUE, noted RLE weakness. She is moving her left arm and leg. NEURO: Responsive to verbal stimuli but unable to follow commands. Right-sided neuro deficits secondary to prior CVA. SKIN: Cool and dry, no rash. PSYCHIATRIC: Unable to assess. Portions of this note were transcribed by a medical reception. I personally performed a history, physical exam, medical decision making, and confirmed accuracy of information the transcribed note. ED Course: 83 y/o female presents via EMS after being found unresponsive at her assisted living home. During my exam, she did open her eyes and is moving her left arm and leg. No motor tone in RUE, noted RLE weakness. She is blinking her eyes. She has labored, wheezing respirations, particularly on the left. Her pupils are pinpoint bilaterally. 16:55 Patient is now looking around, but she is not following commands. No Babinski reflex. Patient has history of admission for encephalopathy, UTI. History of CVA. She does have a [place] MOST form present, comfort measures only. Her daughter is on her way to the emergency department. 12-LEAD EKG: Please see the full report in [employer]. My interpretation: Sinus rhythm. 17:00 Reviewed i-stat. 17:12 POC troponin 0.06. Temperature 38.3. Daughter is present. We discussed the patient's presentation and most form. Daughter tells me her mother has been running a fever for about 3 days. She was seen recently and had a chest x-ray performed which was negative for pneumonia. She did not have a urinalysis obtained at that time. We discussed the MOST form and the daughter confirms the patient's wishes to not have IV fluids and not have antibiotics. 17:30 Patient is now hypotensive at 71/33, tachypneic. Extremities feel chilled. Pulse oximeter is not picking up a good signal. I discussed the situation again with the daughter. I believe that the patient is in the final stages of her life and is in the active process of dying. Daughter would like her to be made comfortable only. Patient does seem to have a significant amount of air hunger. She received 2 mg of morphine IV. We will call the box folding machine operator to assist the family, at bedside. 17:56 Consulted with hospitalist service. The patient will be admitted under the care of Dr. Brar. I have had an end-of-life discussion with the patient' s daughter, and she understands this is the likely progression of events this evening. MDM: Differential diagnoses for the patient's symptom complex was considered including but not limited to respiratory distress, urinary tract infection, urosepsis, end of life care. - Data Points Laboratory Results: Laboratory Results 11/23/18 16:50 11/23/18 16:50 11/23/18 11/23/18 11/23/18 17:01 16:59 16:50 WBC RBC Hgb POC Hgb 16.3 gm/dL gm/dL (12.6-16.3) Hct POC Hct 48 % H % (38-47) MCV MCH MCHC RDW Plt Count MPV Neut % (Auto) Lymph % (Auto) [place] % (Auto) Eos % (Auto) Baso % (Auto) Nucleat RBC Rel Count Absolute Neuts (auto) Absolute Lymphs (auto) Absolute Monos (auto) Absolute Eos (auto) Absolute Basos (auto) Absolute Nucleated RBC Immature Gran % Immature Gran # POC Sodium 140 mEq/L mEq/L (135-145) Sodium 137 mEq/L mEq/L (135-145) POC Potassium 4.6 mEq/L mEq/L (3.3-5.0) Potassium 5.0 mEq/L mEq/L (3.5-5.2) POC Chloride 105 mEq/L mEq/L (97-110) Chloride 103 mEq/L mEq/L (97-110) Carbon Dioxide 19 mEq/l L mEq/l (22-31) POC Total CO2 20 mEq/L L mEq/L (22-31) Anion Gap 15 mEq/L H mEq/L (6-14) POC BUN 32 mg/dL H mg/dL (7-23) BUN 34 mg/dL H mg/dL (7-23) Creatinine 1.2 mg/dL H mg/dL (0.6-1.0) POC Creatinine 1.2 mg/dL H mg/dL (0.6-1.0) Estimated GFR 43 Glucose 167 mg/dL H mg/dL (70-100) POC Glucose 174 mg/dL H mg/dL (70-100) Calcium 9.8 mg/dL mg/dL (8.5-10.4) POC Troponin I 0.06 ng/mL ng/mL (0.00-0.08) Troponin I 0.036 ng/mL H ng/mL (0.000-0.034) 11/23/18 16:50 WBC 10.91 10^3/uL H 10^3/uL (3.80-9.50) RBC 5.67 10^6/uL H 10^6/uL (4.18-5.33) Hgb 15.1 g/dL g/dL (12.6-16.3) POC Hgb Hct 47.3 % H % (38.0-47.0) POC Hct MCV 83.4 fL fL (81.5-99.8) MCH 26.6 pg L pg (27.9-34.1) MCHC 31.9 g/dL L g/dL (32.4-36.7) RDW 17.9 % H % (11.5-15.2) Plt Count 330 10^3/uL 10^3/uL (150-400) MPV 10.6 fL fL (8.7-11.7) Neut % (Auto) 74.6 % H % (39.3-74.2) Lymph % (Auto) 13.4 % L % (15.0-45.0) [place]clean % (Auto) 11.0 % % (4.5-13.0) Eos % (Auto) 0.1 % L % (0.6-7.6) Baso % (Auto) 0.2 % L % (0.3-1.7) Nucleat RBC Rel Count 0.0 % % (0.0-0.2) Absolute Neuts (auto) 8.14 10^3/uL H 10^3/uL (1.70-6.50) Absolute Lymphs (auto) 1.46 10^3/uL 10^3/uL (1.00-3.00) Absolute Monos (auto) 1.20 10^3/uL H 10^3/uL (0.30-0.80) Absolute Eos (auto) 0.01 10^3/uL L 10^3/uL (0.03-0.40) Absolute Basos (auto) 0.02 10^3/uL 10^3/uL (0.02-0.10) Absolute Nucleated RBC 0.00 10^3/uL 10^3/uL (0-0.01) Immature Gran % 0.7 % % (0.0-1.1) Immature Gran # 0.08 10^3/uL 10^3/uL (0.00-0.10) POC Sodium Sodium POC Potassium Potassium POC Chloride Chloride Carbon Dioxide POC Total CO2 Anion Gap POC BUN BUN Creatinine POC Creatinine Estimated GFR Glucose POC Glucose Calcium POC Troponin I Troponin I Medications Given: Morphine Sulfate (Morphine) 2 - 4 mg IVP Q1HR PRN PRN Reason: Pain, Severe Unable to Take PO Stop: 12/03/18 18:50 Last Admin: 11/23/18 21:21 Dose: 2 mg Discontinued Medications Sodium Chloride (Ns) 500 mls @ 1,000 mls/hr IV EDNOW ONE PRN Reason: Protocol Stop: 11/23/18 17:34 Last Admin: 11/23/18 17:33 Dose: Not Given Morphine Sulfate (Morphine) 2 mg IVP EDNOW ONE Stop: 11/23/18 17:35 Last Admin: 11/23/18 17:43 Dose: 2 mg Point of Care Test Results: Chemistry 11/23/18 11/23/18 17:01 16:59 POC Sodium 140 mEq/L mEq/L (135-145) POC Potassium 4.6 mEq/L mEq/L (3.3-5.0) POC Chloride 105 mEq/L mEq/L (97-110) POC Total CO2 20 mEq/L L mEq/L (22-31) POC BUN 32 mg/dL H mg/dL (7-23) POC Creatinine 1.2 mg/dL H mg/dL (0.6-1.0) POC Glucose 174 mg/dL H mg/dL (70-100) POC Troponin I 0.06 ng/mL ng/mL (0.00-0.08) ISTAT H&H 11/23/18 17:01 POC Hgb 16.3 gm/dL gm/dL (12.6-16.3) POC Hct 48 % H % (38-47) General Time Seen by Provider: 11/23/18 16:50 Initial Vital Signs: Initial Vital Signs Temperature (C) 36.5 C 11/23/18 16:56 Heart Rate 67 11/23/18 16:56 Respiratory Rate 20 11/23/18 16:56 Blood Pressure 114/52 L 11/23/18 16:56 O2 Sat (%) 99 11/23/18 16:56 O2 Delivery Mode Non-Rebreather Mask O2 (L/minute) 15 Allergies/Adverse Reactions: No Known Drug Allergies Allergy (Verified 02/08/18 10:43) Home Medications: Medication Instructions Recorded Aspirin EC [Aspirin EC 81 mg (*)] 81 mg PO DAILY 10/27/17 Atorvastatin Calcium [Lipitor 10 10 mg PO HS 10/27/17 mg (*)] Levothyroxine [Synthroid 50 mcg 50 mcg PO DAILY06 10/27/17 (*)] Bethanechol [Urecholine (*)] 25 mg PO TID 02/08/18 Acetaminophen [Tylenol 325mg (*)] 650 mg PO Q4HRS PRN tab 02/12/18 Lisinopril [Zestril 2.5 mg (*)] 2.5 mg PO DAILY 11/23/18 Departure - Departure Disposition: [facility] Inpatient Acute Clinical Impression: Unresponsive, End of life care Condition: Critical Report Scribed for: Maria A Miller Report Scribed by: [place]y [place] Date of Report: 11/23/18 Time of Report: 18:32
[2018-11-23] MEDS ORDERED: NS 500 ML IV ONE (17:05)
[2018-11-23 17:22] LABS: PLATELET COUNT 330 10^3/uL (150-400)
[2018-11-23 17:33] VITALS: BP 90/42
[2018-11-23] MEDS ORDERED: ONDANSETRON 4 MG/2 ML VIAL IVP PRN (18:50)
[2018-11-23] MEDS ORDERED: ONDANSETRON DISINTEGRATING 4 MG TAB PO PRN (18:50)
[2018-11-23] MEDS ORDERED: ACETAMINOPHEN 325 MG TAB PO PRN (18:50)
[2018-11-23] MEDS ORDERED: morphINE 10 MG/0.5 ML UDSYR PO PRN (18:51)
[2018-11-23] MEDS ORDERED: GLYCOPYRROLATE 0.2 MG/1 ML VIAL IVP/IM PRN (18:51)
[2018-11-23] MEDS ORDERED: MAGNESIUM HYDROXIDE 30 ML UDCUP PO PRN (18:51)
--- NOTE | 2018-11-23 19:34 | PDGENHP ---
History and Physical - Chief Complaint fever - History of Present Illness 83yo F with recent CVA presents from [facility] with 2-3 days of fevers, shortness of breath, and worsening of her mental status. Unable to obtain any history from patient. Daughter at bedside and provides reliable information. Patient apparently had stroke 3 weeks ago and was hospitalized at different facility. She had right sided paralysis and has been minimally responsive since that time. She returned to living at [facility]. Developed fevers 3 days ago. Has been having difficulty breathing. Got CXR 2 days ago that was reportedly normal. She was found unresponsive today and brought to the ED. She was found to be febrile, tachypneic, and hypoxic. She was initially normotensive but subsequently became hypotensive. Family decided against further evaluation and elected for comfort care based on the patient's wishes. She is being admitted in the active dying process. History Information - Allergies/Home Medication List Allergies/Adverse Reactions: No Known Drug Allergies Allergy (Verified 02/08/18 10:43) Home Medications: Aspirin EC [Aspirin EC 81 mg (*)] 81 mg PO DAILY 10/27/17 [Last Taken 02/08/18] Atorvastatin Calcium [Lipitor 10 mg (*)] 10 mg PO HS 10/27/17 [Last Taken ] Levothyroxine [Synthroid 50 mcg (*)] 50 mcg PO DAILY06 10/27/17 [Last Taken ] Bethanechol [Urecholine (*)] 25 mg PO TID 02/08/18 [Last Taken 02/08/18] Lisinopril [Zestril 2.5 mg (*)] 2.5 mg PO DAILY 11/23/18 [Last Taken Unknown] I have personally reviewed and updated: family history, medical history, social history, surgical history - Past Medical History CVA (Multifocal with hemorrhagic conversion, residual ataxia, right evelia paresis , cognitive impairment) Additional medical history: Depression. Chronic pain with sciatica. Hypertension. Chronic urinary retention. Chronic kidney disease stage 3. Recurrent urinary tract infection with E coli and Proteus. Cataracts. Hyperlipidemia. Recent CVA complicated by R hemiparesis, ataxis - Surgical History Reports: no pertinent surgical hx - Family History Additional family history: Her daughter has vascular dementia - Social History Smoking Status: Never smoked Alcohol Use: None Drug Use: None Additional social history: Living at [facility] Review of Systems Review of Systems: Unable to obtain Physical Exam Physical Exam: Temp Pulse Resp BP Pulse Ox 38.3 C 69 30 H 90/42 L 72 L 11/23/18 17:17 11/23/18 17:32 11/23/18 17:32 11/23/18 17:32 11/23/18 17:32 Constitutional: no apparent distress Eyes: PERRL Ears, Nose, Mouth, Throat: dry mucous membranes Cardiovascular: systolic murmur, tachycardia Respiratory: no respiratory distress, rhonchi, No expiratory wheeze, No inspiratory crackles Gastrointestinal: soft, non-tender abdomen Genitourinary: no bladder fullness Skin: warm Musculoskeletal: generalized weakness Neurologic: other (not arousable) Psychiatric: encephalopathic Lab Data & Imaging Review 11/23/18 16:50 11/23/18 16:50 WBC 10.91 10^3/uL (3.80-9.50) H 11/23/18 16:50 RBC 5.67 10^6/uL (4.18-5.33) H 11/23/18 16:50 Hgb 15.1 g/dL (12.6-16.3) 11/23/18 16:50 POC Hgb 16.3 gm/dL (12.6-16.3) 11/23/18 17:01 Hct 47.3 % (38.0-47.0) H 11/23/18 16:50 POC Hct 48 % (38-47) H 11/23/18 17:01 MCV 83.4 fL (81.5-99.8) 11/23/18 16:50 MCH 26.6 pg (27.9-34.1) L 11/23/18 16:50 MCHC 31.9 g/dL (32.4-36.7) L 11/23/18 16:50 RDW 17.9 % (11.5-15.2) H 11/23/18 16:50 Plt Count 330 10^3/uL (150-400) 11/23/18 16:50 MPV 10.6 fL (8.7-11.7) 11/23/18 16:50 Neut % (Auto) 74.6 % (39.3-74.2) H 11/23/18 16:50 Lymph % (Auto) 13.4 % (15.0-45.0) L 11/23/18 16:50 [place] % (Auto) 11.0 % (4.5-13.0) 11/23/18 16:50 Eos % (Auto) 0.1 % (0.6-7.6) L 11/23/18 16:50 Baso % (Auto) 0.2 % (0.3-1.7) L 11/23/18 16:50 Nucleat RBC Rel Count 0.0 % (0.0-0.2) 11/23/18 16:50 Absolute Neuts (auto) 8.14 10^3/uL (1.70-6.50) H 11/23/18 16:50 Absolute Lymphs (auto) 1.46 10^3/uL (1.00-3.00) 11/23/18 16:50 Absolute Monos (auto) 1.20 10^3/uL (0.30-0.80) H 11/23/18 16:50 Absolute Eos (auto) 0.01 10^3/uL (0.03-0.40) L 11/23/18 16:50 Absolute Basos (auto) 0.02 10^3/uL (0.02-0.10) 11/23/18 16:50 Absolute Nucleated RBC 0.00 10^3/uL (0-0.01) 11/23/18 16:50 Immature Gran % 0.7 % (0.0-1.1) 11/23/18 16:50 Immature Gran # 0.08 10^3/uL (0.00-0.10) 11/23/18 16:50 POC Sodium 140 mEq/L (135-145) 11/23/18 17:01 Sodium 137 mEq/L (135-145) 11/23/18 16:50 POC Potassium 4.6 mEq/L (3.3-5.0) 11/23/18 17:01 Potassium 5.0 mEq/L (3.5-5.2) 11/23/18 16:50 POC Chloride 105 mEq/L (97-110) 11/23/18 17:01 Chloride 103 mEq/L (97-110) 11/23/18 16:50 Carbon Dioxide 19 mEq/l (22-31) L 11/23/18 16:50 POC Total CO2 20 mEq/L (22-31) L 11/23/18 17:01 Anion Gap 15 mEq/L (6-14) H 11/23/18 16:50 POC BUN 32 mg/dL (7-23) H 11/23/18 17:01 BUN 34 mg/dL (7-23) H 11/23/18 16:50 Creatinine 1.2 mg/dL (0.6-1.0) H 11/23/18 16:50 POC Creatinine 1.2 mg/dL (0.6-1.0) H 11/23/18 17:01 Estimated GFR 43 11/23/18 16:50 Glucose 167 mg/dL (70-100) H 11/23/18 16:50 POC Glucose 174 mg/dL (70-100) H 11/23/18 17:01 Calcium 9.8 mg/dL (8.5-10.4) 11/23/18 16:50 POC Troponin I 0.06 ng/mL (0.00-0.08) 11/23/18 16:59 Troponin I 0.036 ng/mL (0.000-0.034) H 11/23/18 16:50 Assessment & Plan Assessment: 83yo F with recent CVA presents from [facility] with 2-3 days of fevers, shortness of breath, and worsening of her mental status. Plan: 1. Acute on chronic metabolic encephalopathy: Suspect due to infection, likely aspiration pneumonia. - Family has elected to pursue comfort measures, will not evaluate further - Comfort order set placed 2. Acute hypoxemic respiratory failure - Morphine PRN and supplemental oxygen for comfort 3. Severe sepsis: With incr RR, fever with suspected pulm source. - No antibiotics, fluids, cultures, etc per wishes Dispo: The patient is actively dying and I believe she will pass in the next few hours. Family aware and at bedside. Town Manager has been made available to them.
--- NOTE | 2018-11-23 23:22 | CPEKG ---
Test Reason : OPEN Blood Pressure : / mmHG Vent. Rate : 067 BPM Atrial Rate : 067 BPM P-R Int : 203 ms QRS Dur : 091 ms QT Int : 466 ms P-R-T Axes : 082 -12 065 degrees QTc Int : 492 ms Sinus rhythm Anteroseptal infarct, old Confirmed by Maria A Miller ([id number]) on 11/23/2018 11:22:17 PM Referred By: Maria A Miller Confirmed By:Maria A Miller
--- NOTE | 2018-11-23 23:49 | PDDCSUM ---
Discharge Summary Discharge Summary: Date of Admission: 11/23/2018 Date of Discharge: 11/23/2018 Studies: none Disposition: in hospital Discharge Diagnoses: 1. Acute hypoxemic respiratory failure 2. Severe sepsis 3. Acute on chronic metabolic encephalopathy 4. Recent CVA with resultant R hemiparesis 5. CKD Brief Hospital Course: 83yo F with recent CVA presented from [facility] with 2-3 days of fevers, shortness of breath, and worsening of her mental status. Unable to obtain any history from patient. Daughter at bedside and provides reliable information. Patient apparently had a stroke 3 weeks ago and was hospitalized at different facility. She had right sided paralysis and has been minimally responsive since that time. She returned to living at [facility]. Developed fevers 3 days prior to admission and was apparently having difficulty breathing. She was found unresponsive and brought to the ED where was found to be febrile, tachypneic, and hypoxic. She was initially normotensive but subsequently became hypotensive. I suspect she had an aspiration event related to her recent CVA and became septic. Family decided against further evaluation and elected for comfort care based on the patient's wishes. Comfort care orders were placed. Patient passed peacefully with family at bedside. Medications: None
== END 2018-11-23 22:50 | disposition expired ==
LOC: EDUNIT# → F2W 18:10
PROVIDERS: ADMIT Internal Medicine; ATTEND Internal Medicine
DX: J96.01 Acute respiratory failure with hypoxia (principal); G93.41 Metabolic encephalopathy; E86.9 Volume depletion, unspecified; R50.9 Fever, unspecified; I69.351 Hemiplegia and hemiparesis following cerebral infarction affecting right dominant side; I69.393 Ataxia following cerebral infarction; I95.9 Hypotension, unspecified; N18.3 Chronic kidney disease, stage 3 (moderate); I12.9 Hypertensive chronic kidney disease with stage 1 through stage 4 chronic kidney disease, or unspecified chronic kidney disease; R63.6 Underweight; Z68.1 Body mass index [BMI] 19.9 or less, adult; F32.9 Major depressive disorder, single episode, unspecified; G89.29 Other chronic pain; Z87.440 Personal history of urinary (tract) infections; Z66 Do not resuscitate
CPT/HCPCS: 93005; 96374; 96376; 99285; G0378; J2270; 82435-PO; 82565-PO; 82947-PO; 84132-PO; 84295-PO; 84484-ER; 84520-PO; 85014-ER